=== PATIENT | male | born 1955 | race American Indian/Alaskan Native ===

== ENCOUNTER 2020-09-19 18:50 | Observation (INO) | payer MEDICARE, OTHER ==
[2020-09-19] MEDS ORDERED: IPRATROPIUM 0.02% NEBU 2.5 ML IH ONE (19:32)
[2020-09-19] MEDS ORDERED: ALBUTEROL 2.5 MG/3 ML NEBU IH ONE (19:32)
--- NOTE | 2020-09-19 19:32 | Emergency Department Report ---
ED Shortness of Breath HPI - General Stated Complaint: JASMYNE Time Seen by Provider: 09/19/20 19:23 Source: patient Mode of arrival: Stretcher Limitations: No Limitations - History of Present Illness Initial Comments: Chief complaint: "I could not breathe." HPI: This 65-year-old male with history of tobacco dependence, peripheral vascular disease, hypertension, alcohol dependence who presents with shortness of breath. Patient was recently discharged from the emergency department at [facility] 4 days ago on September 15. He was diagnosed with pneumonia and bronchitis. No known history of COPD. Patient had extensive work-up according to discharge documentation. Work-up included CBC BMP rapid COVID-19 PCR test, D-dimer, troponin, CT angio chest PE protocol. Patient is not vaccinated for COVID-19. Patient was prescribed azithromycin cefuroxime albuterol. Today patient contacted EMS for severe shortness of breath. Verbal EMS report stated that patient was in severe respiratory distress. Oxygen saturation 85% on room air. Medication provided per EMS include epinephrine 0.3 mg IM, IV Solu-Medrol, IV magnesium, albuterol 7.5 mg. Patient symptoms have improved. Patient denies fever, chest pain. He does have productive cough. He denies loss of taste or smell. Denies diarrhea. Electronic medical record reviewed. Complaint: shortness of breath -: Gradual, days(s) (4 days) Severity: severe Consistency: constant Improves With: nothing Worsens With: nothing Known History Of: other (Tobacco dependence recent diagnosis of pneumonia bronchitis at outside hospital) Associated Symptoms: cough, sputum production - Related Data Home Medications Medication Instructions Recorded Confirmed Last Taken Unobtainable 03/15/17 03/15/17 Unknown Allergies Allergy/AdvReac Type Severity Reaction Status Date / Time No Known Allergies Allergy Unverified 03/21/17 06:41 ED Review of Systems ROS: Stated complaint: JASMYNE Other details as noted in HPI Comment: All other systems reviewed and negative Constitutional: denies: fever, malaise ENT: denies: throat pain Respiratory: cough, shortness of breath, wheezing Cardiovascular: denies: chest pain Gastrointestinal: denies: abdominal pain, nausea, vomiting, diarrhea Neurological: denies: headache ED Past Medical Hx - Past Medical History Previous Medical History?: Yes Hx Hypertension: Yes Hx Diabetes: Yes - Surgical History Past Surgical History?: Yes Additional Surgical History: ORIF left lower extremity, vascular procedure right lower extremity, neck surgery status post trauma - Family History Family history: hypertension - Social History Smoking Status: Current Every Day Smoker Substance Use Type: Alcohol - Medications Home Medications: Home Medications Medication Instructions Recorded Confirmed Last Taken Type Unobtainable 03/15/17 03/15/17 Unknown History ED Physical Exam - General General appearance: alert, other (Speaking full word sentences with mild work of breathing) - Head Head exam: Present: atraumatic, normocephalic - Eye Eye exam: Present: normal appearance - ENT ENT exam: Present: mucous membranes moist - Neck Neck exam: Present: normal inspection, full ROM - Respiratory Respiratory exam: Present: respiratory distress, wheezes, decreased breath sounds, prolonged expiratory. Absent: rales, rhonchi, stridor - Cardiovascular Cardiovascular Exam: Present: regular rate, normal rhythm, normal heart sounds. Absent: systolic murmur, diastolic murmur, rubs, gallop - GI/Abdominal GI/Abdominal exam: Present: soft, normal bowel sounds. Absent: distended, tenderness, guarding, rebound - Rectal Rectal exam: Present: deferred - Extremities Exam Extremities exam: Present: normal inspection - Neurological Exam Neurological exam: Present: alert, oriented X3 - Psychiatric Psychiatric exam: Present: normal affect, normal mood - Skin Skin exam: Present: warm, dry, intact, normal color. Absent: rash ED Course Vital Signs 09/19/20 09/19/20 09/19/20 19:24 19:33 19:46 Temperature 98.2 F Pulse Rate 94 H Pulse Rate [ Bilateral] Respiratory 19 Rate Respiratory Rate [Bilateral ] Blood Pressure O2 Sat by Pulse 100 100 Oximetry 09/19/20 09/19/20 09/19/20 19:47 20:00 20:16 Temperature Pulse Rate 89 84 Pulse Rate [ 90 Bilateral] Respiratory 15 14 Rate Respiratory 18 Rate [Bilateral ] Blood Pressure 139/82 139/82 O2 Sat by Pulse 100 100 Oximetry 09/19/20 09/19/20 09/19/20 20:30 20:46 21:00 Temperature Pulse Rate 85 85 82 Pulse Rate [ Bilateral] Respiratory 18 17 19 Rate Respiratory Rate [Bilateral ] Blood Pressure 130/84 130/84 140/83 O2 Sat by Pulse 100 100 100 Oximetry ED Medical Decision Making - Lab Data Result diagrams: 09/19/20 19:27 09/19/20 20:19 Laboratory Results - last 24 hr 09/19/20 09/19/20 09/19/20 19:27 19:27 19:27 WBC 14.3 H RBC 4.63 Hgb 14.4 Hct 43.9 MCV 95 H MCH 31 MCHC 33 RDW 13.8 Plt Count 256 Eos % (Auto) Qc Scientist D-Dimer Sodium 138 Potassium 3.9 Chloride 103.7 Carbon Dioxide 23 Anion Gap 15 BUN 4 L Creatinine 0.7 L Estimated GFR > 60 BUN/Creatinine Ratio 6 Glucose 136 H Calcium 8.7 Ferritin Lactate Dehydrogenase C-Reactive Protein NT-Pro-B Natriuret Pep 163.5 09/19/20 09/19/20 09/19/20 20:19 20:19 20:19 WBC RBC Hgb Hct MCV MCH MCHC RDW Plt Count Eos % (Auto) D-Dimer 232.81 Sodium Potassium Chloride Carbon Dioxide Anion Gap BUN Creatinine Estimated GFR BUN/Creatinine Ratio Glucose 109 H Calcium Ferritin 114.6 Lactate Dehydrogenase 284 H C-Reactive Protein 0.70 NT-Pro-B Natriuret Pep - Radiology Data Radiology results: report reviewed [facility] [address] [place] [address] XRay Report Signed Patient: JAZLYN TORRES MR#: [id number] : 1955 Acct:[id number] Age/Sex: 65 / M ADM Date: 09/19/20 Loc: ED Attending Dr: Ordering Physician: Sherita El MD Date of Service: 09/19/20 Procedure(s): XR chest 1V ap Accession Number(s): [id number] cc: Sherita El MD Fluoro Time In Minutes: CHEST 1 VIEW INDICATION: dyspnea. COMPARISON: 09/17/2019 FINDINGS: Support devices: The patient has been extubated. Heart: Normal. Lungs/Pleura: Right infrahilar airspace disease persists. There is mild left basilar airspace disease. No pleural abnormality. IMPRESSION: 1. Mild bibasilar airspace disease greater on the right. These findings are similar to the prior. Signer Name: Jae Mcfadden MD Signed: 09/19/2020 7:55 PM Workstation Name: [id number] Transcribed By: BLAYNE Dictated By: Jae Mcfadden MD Electronically Authenticated By: Jae Mcfadden MD Signed Date/Time: 09/19/201954 DD/ 53 TD/TT: - Medical Decision Making Acute respiratory failure hypoxia due to multifocal pneumonia. Clear patient's recent COVID-[address] [facility] was negative or positive. Patient unable to give this information. Covid precautions instituted. Covid markers not elevated. Patient does have leukocytosis. He also is at risk for bacterial infection considering tobacco dependence. Patient treated with ceftriaxone and azithromycin. Considering long-term tobacco use, COPD is also a consideration. Patient is admitted in fair condition to the hospital service. CBC notable for leukocytosis. Critical care attestation.: If time is entered above; I have spent that time in minutes in the direct care of this critically ill patient, excluding procedure time. ED Disposition Clinical Impression: Acute respiratory failure with hypoxia, Community acquired pneumonia, Suspected COVID-19 virus infection Disposition: OP ADMIT IP TO THIS HOSP Is pt being admited?: Yes Does the pt Need Aspirin: No Condition: Stable Instructions: Bacterial Pneumonia (ED)
[2020-09-19 19:58] LABS: Blood Urea Nitrogen 4 mg/dL (9-20); Calcium 8.7 mg/dL (8.4-10.2); Hemolysis Index 2
--- NOTE | 2020-09-19 19:59 | XRay Report ---
CHEST 1 VIEW INDICATION: dyspnea. COMPARISON: 09/17/2019 FINDINGS: Support devices: The patient has been extubated. Heart: Normal. Lungs/Pleura: Right infrahilar airspace disease persists. There is mild left basilar airspace disease . No pleural abnormality. IMPRESSION: 1. Mild bibasilar airspace disease greater on the right. These findings are similar to the prior. Signer Name: Jae Mcfadden MD Signed: 09/19/2020 7:55 PM Workstation Name: [id number]
[2020-09-19] MEDS ORDERED: cefTRIAXone/NS 1 GM/50 ML 1 GM/50 ML BAG IV ONE (20:02)
[2020-09-19] MEDS ORDERED: AZITHROMYCIN/NS 500 MG/250 ML 500 MG/250 ML BAG IV ONE (20:02)
[2020-09-19 20:12] LABS: BUN/Creatinine Ratio 6
[2020-09-19 20:15] LABS: Hematocrit 43.9 % (35.5-45.6); Hemoglobin 14.4 gm/dl (11.8-15.2); Mean Corpuscular HGB Conc 33 % (32-34); Mean Corpuscular Volume 95 fl (84-94); Platelet Count 256 K/mm3 (140-440); Red Blood Count 4.63 M/mm3 (3.65-5.03); Red Cell Distribution Width 13.8 % (13.2-15.2)
[2020-09-19 21:05] LABS: C-Reactive Protein 0.7 mg/dL (0.00-1.30)
[2020-09-19 22:24] LABS: RBC Morphology Normal; Total Cells Counted 100
--- NOTE | 2020-09-19 23:12 | History and Physical Report ---
History of Present Illness Date of examination: 09/19/20 Date of admission: 09/19/20 22:30 Chief complaint: Cough Shortness of breath History of present illness: This is a 65-year-old male who presented to ED with chief complaint of shortness of breath and cough. Patient was recently discharge from [facility] days ago and he was diagnosed with pneumonia and bronchitis. Patient has history of tobacco use peripheral vascular disease hypertension and alcohol dependency. Patient denies the use of illicit drugs. On assessment, patient has cough and shortness of breath. Chest x-ray shows mild basilar airspace disease greater on the right. Patient is on room me and not in acute distress. Hospital medicine is consulted to admit the patient. Past History Past Medical History: hypertension Past Surgical History: Other (Left leg surgery) Social history: no significant social history, smoking (Quit about 12 years ago) Medications and Allergies Allergies Allergy/AdvReac Type Severity Reaction Status Date / Time No Known Allergies Allergy Unverified 03/21/17 06:41 Home Medications Medication Instructions Recorded Confirmed Last Taken Type Unobtainable 03/15/17 03/15/17 Unknown History Review of Systems Constitutional: weakness Ears, nose, mouth and throat: no epistaxis, no bleeding gums Cardiovascular: high blood pressure Respiratory: cough, shortness of breath Gastrointestinal: no BRBPR, no melena Rectal: no itching, no hemorrhoids Musculoskeletal: muscle weakness Integumentary: no pruritis, no redness Psychiatric: no suicidal ideation, no disorientation, no hallucinations Hematologic/Lymphatic: no easy bruising, no easy bleeding Allergic/Immunologic: no urticaria Exam - Constitutional Vitals: Temp Pulse Resp BP Pulse Ox 98.2 F 82 19 140/83 100 09/19/20 19:24 09/19/20 21:00 09/19/20 21:00 09/19/20 21:00 09/19/20 21:00 General appearance: Present: mild distress, well-nourished - EENT Eyes: Present: PERRL ENT: hearing intact, clear oral mucosa - Neck Neck: Present: supple, normal ROM - Respiratory Respiratory effort: other (Shortness of breath) Respiratory: bilateral: CTA - Cardiovascular Heart rate: 82 Heart Sounds: Present: S1 & S2. Absent: rub, click - Extremities Extremities: pulses symmetrical, No edema Peripheral Pulses: within normal limits - Abdominal General gastrointestinal: Present: soft, non-tender, non-distended, normal bowel sounds Male genitourinary: Present: normal - Integumentary Integumentary: Present: clear, warm, dry - Musculoskeletal Musculoskeletal: gait normal, strength equal bilaterally - Psychiatric Psychiatric: appropriate mood/affect, intact judgment & insight, cooperative - Neurologic Neurologic: CNII-XII intact, moves all extremities - Allied Health Allied health notes reviewed: nursing Results - Labs CBC & Chem 7: 09/20/20 05:01 09/19/20 20:19 Labs: Abnormal lab results 09/19/20 09/19/20 09/19/20 Range/Units 19:27 19:27 20:19 WBC 14.3 H (4.5-11.0) K/mm3 MCV 95 H (84-94) fl Lymphocytes % (Manual) 13.0 L (13.4-35.0) % Eosinophils % (Manual) 38.0 H (0.0-4.3) % Monocytes # (Manual) 0.9 H (0.0-0.8) K/mm3 Eosinophils # (Manual) 5.4 H (0.0-0.4) K/mm3 BUN 4 L (9-20) mg/dL Creatinine 0.7 L (0.8-1.3) mg/dL Glucose 136 H 109 H (75-100) mg/dL Lactate Dehydrogenase 284 H (91-180) units/L Assessment and Plan - Patient Problems (1) Suspected COVID-19 virus infection Current Visit: Yes Status: Acute Plan to address problem: Continue contact airborne isolation Empiric antibiotic and oxygen supplement if needed Ascorbic acid, zinc sulfate, and vitamin D supplement Encourage ambulation and use of incentive spirometer Monitor inflammatory markers. ID consulted. (2) Community acquired pneumonia Current Visit: Yes Status: Acute Plan to address problem: Continue empiric antibiotic Bronchodilator. Oxygen supplement if needed (3) Leukocytosis (leucocytosis) Current Visit: Yes Status: Acute Plan to address problem: Likely secondary to pneumonia Monitor WBC and lactic acid level Blood culture follow-up with results ID consult (4) Acute respiratory failure Current Visit: Yes Status: Acute Plan to address problem: Respiratory careABG Systemic steroid and bronchodilator Antibiotic empiric Consult ID (5) DVT prophylaxis Current Visit: Yes Status: Acute Plan to address problem: Subcutaneous Lovenox
[2020-09-19] MEDS ORDERED: HYDROcodone/ACETAMINOPHEN 5-325 MG TAB PO PRN (23:22)
[2020-09-19] MEDS ORDERED: ACETAMINOPHEN 325 MG TAB PO PRN (23:22)
[2020-09-19] MEDS ORDERED: MAGNESIUM HYDROXIDE (MOM) ORAL LIQD UDC PO PRN (23:22)
[2020-09-19] MEDS ORDERED: NALOXONE 0.4 MG/1 ML INJ IV PRN (23:22)
[2020-09-19] MEDS ORDERED: IBUPROFEN 600 MG TAB PO PRN (23:22)
[2020-09-19] MEDS ORDERED: ONDANSETRON 4 MG/2 ML INJ IV PRN (23:22)
[2020-09-19] MEDS ORDERED: ALUM-MAG HYDROXIDE-SIMETHICONE 200-200-20MG/5ML ORAL LIQD 30 ML PO PRN (23:22)
[2020-09-19] MEDS ORDERED: SENNOSIDES 8.6 MG TAB PO PRN (23:22)
[2020-09-19] MEDS ORDERED: METOCLOPRAMIDE 10 MG/2 ML INJ IV PRN (23:22)
[2020-09-19] MEDS ORDERED: ALBUTEROL 2.5 MG/3 ML NEBU IH PRN (23:22)
[2020-09-20] MEDS: IPRATROPIUM/ALBUTEROL SULFATE 3 ML AMPUL.NEB IH SCH ×4 (03:38→19:49)
[2020-09-20 05:35] LABS: Basophils % (Auto) 0.5 % (0.0-1.8); Eosinophils % (Auto) 0.5 % (0.0-4.3); Hemoglobin 14.6 gm/dl (11.8-15.2); Lymphocytes # (Auto) 1.7 K/mm3 (1.2-5.4); Lymphocytes % (Auto) 18.8 % (13.4-35.0); Mean Corpuscular HGB Conc 33 % (32-34); Mean Corpuscular Volume 94 fl (84-94); Monocytes # (Auto) 0.2 K/mm3 (0.0-0.8); Monocytes % (Auto) 1.9 % (0.0-7.3); Platelet Count 264 K/mm3 (140-440); Red Cell Distribution Width 13.8 % (13.2-15.2)
[2020-09-20 06:06] LABS: Alanine Aminotransferase 26 units/L (7-56); Blood Urea Nitrogen 7 mg/dL (9-20); C-Reactive Protein 0.7 mg/dL (0.00-1.30); Calcium 9.4 mg/dL (8.4-10.2); Hemolysis Index 0
[2020-09-20 06:07] LABS: BUN/Creatinine Ratio 10
[2020-09-20] MEDS: dexAMETHasone 4 MG/ML VIAL IV SCH (10:13)
[2020-09-20] MEDS: ZINC SULFATE 220 MG CAP PO SCH (10:13)
[2020-09-20] MEDS: ENOXAPARIN 40 MG/0.4 ML INJ SUB-Q SCH (10:13)
[2020-09-20] MEDS: FAMOTIDINE 20 MG/2 ML INJ IV SCH (10:13)
--- NOTE | 2020-09-20 11:19 | Consultation ---
History of Present Illness - Reason for Consult Consult date: 09/20/20 PUI Requesting physician: SAVANNAH MCDONALD - History of Present Illness The patient is a 65-year-old male with tobacco use, peripheral vascular disease, alcohol dependence, hypertension admitted with shortness of breath. Recent evaluation in the emergency room at [facility] diagnosed with pneumonia and bronchitis, discharged on p.o. antibiotics. Unvaccinated for COVID-19. Labs with mild leukocytosis. COVID-19 PCR is pending. Chest x-ray with mild bibasilar airspace disease Review of Systems: reviewed in the chart, unable to obtain, minimize risk of transmission Past History Past Medical History: hypertension Past Surgical History: Other (Left leg surgery) Social history: no significant social history, smoking (Quit about 12 years ago) Medications and Allergies Allergies Allergy/AdvReac Type Severity Reaction Status Date / Time No Known Allergies Allergy Unverified 03/21/17 06:41 Home Medications Medication Instructions Recorded Confirmed Last Taken Type Unobtainable 03/15/17 09/20/20 Unknown History Active Meds: Active Medications Acetaminophen (Acetaminophen 325 Mg Tab) 650 mg PO Q4H PRN PRN Reason: Pain MILD(1-3)/Fever >100.5/GANDARA Hydrocodone Bitart/Acetaminophen (Hydrocodone/Acetaminophen 5-325 Mg Tab) 2 each PO Q6H PRN PRN Reason: Pain, Moderate (4-6) Al Hydrox/Mg Hydrox/Simethicone (Alum-Mag Hydroxide-Simethicone 682-024-81in/5ml Oral Liqd 30 Ml) 30 ml PO Q4H PRN PRN Reason: Indigestion Albuterol (Albuterol 2.5 Mg/3 Ml Nebu) 2.5 mg IH Q4HRT PRN PRN Reason: Shortness Of Breath Albuterol/Ipratropium (Ipratropium/Albuterol Sulfate 3 Ml Ampul.Neb) 1 ampul IH Q6HRT [facility] Last Admin: 09/20/20 07:46 Dose: 1 ampul Documented by: Ascorbic Acid (Ascorbic Acid 500 Mg Tab) 500 mg PO QDAY [facility] Cholecalciferol (Cholecalciferol (Vit D3) 1000 Unit (25 Mcg) Tab) 1,000 unit PO QDAY [facility] Dexamethasone (Dexamethasone 4 Mg/Ml Vial) 6 mg IV DAILY [facility] Last Admin: 09/20/20 10:13 Dose: 6 mg Documented by: Enoxaparin Sodium (Enoxaparin 40 Mg/0.4 Ml Inj) 40 mg SUB-Q QDAY [facility] Last Admin: 09/20/20 10:13 Dose: 40 mg Documented by: Famotidine (Famotidine 20 Mg/2 Ml Inj) 20 mg IV BID [facility] Last Admin: 09/20/20 10:13 Dose: 20 mg Documented by: Ceftriaxone Sodium (Rocephin/Ns 1 Gm/50 Ml) 1 gm in 50 mls @ 100 mls/hr IV Q24H [facility]; Protocol Ibuprofen (Ibuprofen 600 Mg Tab) 600 mg PO Q6H PRN PRN Reason: Pain, Mild (1-3) Magnesium Hydroxide (Magnesium Hydroxide (Mom) Oral Liqd Udc) 30 ml PO Q4H PRN PRN Reason: Constipation Metoclopramide HCl (Metoclopramide 10 Mg/2 Ml Inj) 10 mg IV Q6H PRN PRN Reason: Nausea And Vomiting Naloxone HCl (Naloxone 0.4 Mg/1 Ml Inj) 0.1 mg IV Q2MIN PRN PRN Reason: Res Rate </= 8 or 02 SAT < 92% Ondansetron HCl (Ondansetron 4 Mg/2 Ml Inj) 4 mg IV Q8H PRN PRN Reason: Nausea And Vomiting Senna (Sennosides 8.6 Mg Tab) 8.6 mg PO Q12HR PRN PRN Reason: Constipation Sodium Chloride (Sodium Chloride 0.9% 10 Ml Flush Syringe) 10 ml IV PRN PRN PRN Reason: LINE FLUSH Zinc Sulfate (Zinc Sulfate 220 Mg Cap) 220 mg PO QDAY [facility] Last Admin: 09/20/20 10:13 Dose: 220 mg Documented by: Physical Examination - Physical Exam Narrative exam: Physical Exam (reviewed in chart to minimize risk of transmission) Constitutional: deferred Head, Ears, Nose: deferred Eyes: deferred Neck: deferred Oral: deferred Cardiovascular: deferred Respiratory: deferred GI: deferred Musculoskeletal: deferred Skin: deferred Hem/Lymphatic: deferred Psych: deferred Neurological: deferred - Constitutional Vitals: Vital Signs Temp Pulse Resp BP Pulse Ox 98.2 F 61 20 144/95 95 09/19/20 19:24 09/20/20 07:58 09/20/20 07:58 09/20/20 07:30 09/20/20 09:24 Temperature -Last 24 Hours Temperature 98.2 F Results - Labs CBC & Chem 7: 09/20/20 05:01 09/20/20 05:01 Labs: Abnormal lab results 09/19/20 09/19/20 09/19/20 Range/Units 19:27 19:27 20:19 WBC 14.3 H (4.5-11.0) K/mm3 MCV 95 H (84-94) fl Seg Neutrophils % (40.0-70.0) % Lymphocytes % (Manual) 13.0 L (13.4-35.0) % Eosinophils % (Manual) 38.0 H (0.0-4.3) % Monocytes # (Manual) 0.9 H (0.0-0.8) K/mm3 Eosinophils # (Manual) 5.4 H (0.0-0.4) K/mm3 BUN 4 L (9-20) mg/dL Creatinine 0.7 L (0.8-1.3) mg/dL Glucose 136 H 109 H (75-100) mg/dL Alkaline Phosphatase (35-129) units/L Lactate Dehydrogenase 284 H (91-180) units/L 09/20/20 09/20/20 Range/Units 05:01 05:01 WBC (4.5-11.0) K/mm3 MCV (84-94) fl Seg Neutrophils % 78.3 H (40.0-70.0) % Lymphocytes % (Manual) (13.4-35.0) % Eosinophils % (Manual) (0.0-4.3) % Monocytes # (Manual) (0.0-0.8) K/mm3 Eosinophils # (Manual) (0.0-0.4) K/mm3 BUN 7 L (9-20) mg/dL Creatinine 0.7 L (0.8-1.3) mg/dL Glucose 159 H (75-100) mg/dL Alkaline Phosphatase 132 H (35-129) units/L Lactate Dehydrogenase (91-180) units/L - Imaging and Cardiology Chest x-ray: report reviewed, image reviewed (minimal bibasilar disease) Assessment and Plan Cultures: SARS CoV2 PCR: Pending 09/19/2020 blood culture: In process A/P: 65-year-old male with tobacco use, peripheral vascular disease, alcohol dependence, hypertension admitted with shortness of breath. Recent evaluation in the emergency room at [facility] diagnosed with pneumonia and bronchitis, discharged on p.o. antibiotics. Unvaccinated for COVID-19: #Bilateral pneumonia versus bronchitis. CRP is low. Procalcitonin pending. COVID-19 PCR is pending. ? COPD #COVID-19 PUI #Tobacco and alcohol abuse Recs: Follow-up COVID-19 PCR Continue empiric antibiotics, discontinue if procalcitonin is low Steroids per primary team for possible COPD/bronchitis Xavi Simms MD, FACP [facility] O: [phone] F: [phone]
[2020-09-20] MEDS: CHOLECALCIFEROL (VIT D3) 1000 UNIT (25 mcg) TAB PO SCH (11:58)
[2020-09-20] MEDS: ASCORBIC ACID 500 MG TAB PO SCH (11:58)
--- NOTE | 2020-09-20 12:09 | Progress Note ---
Assessment and Plan - Patient Problems (1) Acute respiratory failure Current Visit: Yes Status: Acute Qualifiers: Respiratory failure complication: hypoxia Qualified Code(s): J96.01 - Acute respiratory failure with hypoxia Plan to address problem: Supplemental oxygen, pulse oximetry, nebulizer therapy, prone positioning while in bed, (2) Community acquired pneumonia Current Visit: Yes Status: Acute Plan to address problem: Pneumonia protocol: IV antibiotic therapy, supplemental oxygen, pulse oximetry, nebulizer therapy, (3) Suspected COVID-19 virus infection Current Visit: Yes Status: Acute Plan to address problem: Coronavirus protocol: IV antibiotic therapy, IV steroid therapy, vitamin C the rapy, vitamin D therapy, zinc therapy, pulse oximetry, prophylactic anticoagulation. (4) DVT prophylaxis Current Visit: Yes Status: Acute Plan to address problem: SCD to bilateral lower extremities while in bed, prophylactic anticoagulation (5) Advance care planning Current Visit: Yes Status: Acute Plan to address problem: Disease education conducted, care plan discussed, diagnosis discussed, prognosis discussed, patient is full code, patient acknowledges understanding and agreement with care plan. +30 minutes. History Interval history: 65 YO Male with HTN, pneumonia suspected secondary to coronavirus infection, acute hypoxemic respiratory failure. Patient denies pain. No reported nursing events. Patient knowledges persistent shortness of breath. As well as intermittent coughing. Hospitalist Physical - Constitutional Vitals: Temp Pulse Resp BP Pulse Ox 98.2 F 64 21 142/86 97 09/19/20 19:24 09/20/20 08:30 09/20/20 11:00 09/20/20 11:00 09/20/20 11:00 General appearance: Present: mild distress, well-nourished - EENT Eyes: Present: PERRL, EOM intact ENT: hearing intact - Neck Neck: Present: supple - Respiratory Respiratory effort: labored, accessory muscle use Respiratory: bilateral: diminished - Cardiovascular Rhythm: regular Heart Sounds: Present: S1 & S2 - Extremities Extremities: no ischemia Peripheral Pulses: within normal limits - Abdominal General gastrointestinal: soft, non-tender, non-distended - Integumentary Integumentary: Present: clear, dry - Psychiatric Psychiatric: cooperative - Neurologic Neurologic: CNII-XII intact Results - Labs CBC & Chem 7: 09/20/20 05:01 09/20/20 05:01 Labs: Laboratory Last Values WBC 9.3 K/mm3 (4.5-11.0) 09/20/20 05:01 RBC 4.70 M/mm3 (3.65-5.03) 09/20/20 05:01 Hgb 14.6 gm/dl (11.8-15.2) 09/20/20 05:01 Hct 44.0 % (35.5-45.6) 09/20/20 05:01 MCV 94 fl (84-94) 09/20/20 05:01 MCH 31 pg (28-32) 09/20/20 05:01 MCHC 33 % (32-34) 09/20/20 05:01 RDW 13.8 % (13.2-15.2) 09/20/20 05:01 Plt Count 264 K/mm3 (140-440) 09/20/20 05:01 Lymph % (Auto) 18.8 % (13.4-35.0) 09/20/20 05:01 [place] % (Auto) 1.9 % (0.0-7.3) 09/20/20 05:01 Eos % (Auto) 0.5 % (0.0-4.3) 09/20/20 05:01 Baso % (Auto) 0.5 % (0.0-1.8) 09/20/20 05:01 Lymph # (Auto) 1.7 K/mm3 (1.2-5.4) 09/20/20 05:01 [place] # (Auto) 0.2 K/mm3 (0.0-0.8) 09/20/20 05:01 Eos # (Auto) 0.0 K/mm3 (0.0-0.4) 09/20/20 05:01 Baso # (Auto) 0.0 K/mm3 (0.0-0.1) 09/20/20 05:01 Add Manual Diff Complete 09/19/20 19:27 Total Counted 100 09/19/20 19:27 Seg Neutrophils % 78.3 % (40.0-70.0) H 09/20/20 05:01 Seg Neuts % (Manual) 42.0 % (40.0-70.0) 09/19/20 19:27 Lymphocytes % (Manual) 13.0 % (13.4-35.0) L 09/19/20 19:27 Monocytes % (Manual) 6.0 % (0.0-7.3) 09/19/20 19:27 Eosinophils % (Manual) 38.0 % (0.0-4.3) H 09/19/20 19:27 Basophils % (Manual) 1.0 % (0.0-1.8) 09/19/20 19:27 Nucleated RBC % Not Reportable 09/19/20 19:27 Seg Neutrophils # 7.3 K/mm3 (1.8-7.7) 09/20/20 05:01 Seg Neutrophils # Man 6.0 K/mm3 (1.8-7.7) 09/19/20 19:27 Band Neutrophils # 0.0 K/mm3 09/19/20 19:27 Lymphocytes # (Manual) 1.9 K/mm3 (1.2-5.4) 09/19/20 19:27 Abs React Lymphs (Man) 0.0 K/mm3 09/19/20 19:27 Monocytes # (Manual) 0.9 K/mm3 (0.0-0.8) H 09/19/20 19:27 Eosinophils # (Manual) 5.4 K/mm3 (0.0-0.4) H 09/19/20 19:27 Basophils # (Manual) 0.1 K/mm3 (0.0-0.1) 09/19/20 19:27 Metamyelocytes # 0.0 K/mm3 09/19/20 19:27 Myelocytes # 0.0 K/mm3 09/19/20 19:27 Promyelocytes # 0.0 K/mm3 09/19/20 19:27 Blast Cells # 0.0 K/mm3 09/19/20 19:27 WBC Morphology Not Reportable 09/19/20 19:27 Hypersegmented Neuts Not Reportable 09/19/20 19:27 Hyposegmented Neuts Not Reportable 09/19/20 19:27 Hypogranular Neuts Not Reportable 09/19/20 19:27 Smudge Cells Not Reportable 09/19/20 19:27 Toxic Granulation Not Reportable 09/19/20 19:27 Toxic Vacuolation Not Reportable 09/19/20 19:27 Dohle Bodies Not Reportable 09/19/20 19:27 Pelger-Huet Anomaly Not Reportable 09/19/20 19:27 Prosper Rods Not Reportable 09/19/20 19:27 Platelet Estimate Not Reportable 09/19/20 19:27 Clumped Platelets Not Reportable 09/19/20 19:27 Plt Clumps, EDTA Not Reportable 09/19/20 19:27 Large Platelets Not Reportable 09/19/20 19:27 Giant Platelets Not Reportable 09/19/20 19:27 Platelet Satelliting Not Reportable 09/19/20 19:27 Plt Morphology Comment Not Reportable 09/19/20 19:27 RBC Morphology Normal 09/19/20 19:27 Dimorphic RBCs Not Reportable 09/19/20 19:27 Polychromasia Not Reportable 09/19/20 19:27 Hypochromasia Not Reportable 09/19/20 19:27 Poikilocytosis Not Reportable 09/19/20 19:27 Anisocytosis Not Reportable 09/19/20 19:27 Microcytosis Not Reportable 09/19/20 19:27 Macrocytosis Not Reportable 09/19/20 19:27 Spherocytes Not Reportable 09/19/20 19:27 Pappenheimer Bodies Not Reportable 09/19/20 19:27 Sickle Cells Not Reportable 09/19/20 19:27 Target Cells Not Reportable 09/19/20 19:27 Tear Drop Cells Not Reportable 09/19/20 19:27 Ovalocytes Not Reportable 09/19/20 19:27 Helmet Cells Not Reportable 09/19/20 19:27 [place] Bodies Not Reportable 09/19/20 19:27 [place] Rings Not Reportable 09/19/20 19:27 Van Cells Not Reportable 09/19/20 19:27 Bite Cells Not Reportable 09/19/20 19:27 Crenated Cell Not Reportable 09/19/20 19:27 Elliptocytes Not Reportable 09/19/20 19:27 Acanthocytes (Spur) Not Reportable 09/19/20 19:27 Rouleaux Not Reportable 09/19/20 19:27 Hemoglobin C Crystals Not Reportable 09/19/20 19:27 Schistocytes Not Reportable 09/19/20 19:27 Malaria parasites Not Reportable 09/19/20 19:27 Dequan Bodies Not Reportable 09/19/20 19:27 Hem Pathologist Commnt No 09/19/20 19:27 D-Dimer 137.15 ng/mlDDU (0-234) 09/20/20 05:01 Sodium 138 mmol/L (137-145) 09/20/20 05:01 Potassium 4.3 mmol/L (3.6-5.0) 09/20/20 05:01 Chloride 101.8 mmol/L (98-107) 09/20/20 05:01 Carbon Dioxide 27 mmol/L (22-30) 09/20/20 05:01 Anion Gap 14 mmol/L 09/20/20 05:01 BUN 7 mg/dL (9-20) L 09/20/20 05:01 Creatinine 0.7 mg/dL (0.8-1.3) L 09/20/20 05:01 Estimated GFR > 60 ml/min 09/20/20 05:01 BUN/Creatinine Ratio 10 % 09/20/20 05:01 Glucose 159 mg/dL (75-100) H 09/20/20 05:01 Hemoglobin A1c 6.0 % (4-6) 09/19/20 19:27 Calcium 9.4 mg/dL (8.4-10.2) 09/20/20 05:01 Ferritin 98.3 ng/mL (30.0-300.0) 09/20/20 05:01 Total Bilirubin 0.50 mg/dL (0.1-1.2) 09/20/20 05:01 AST 18 units/L (5-40) 09/20/20 05:01 ALT 26 units/L (7-56) 09/20/20 05:01 Alkaline Phosphatase 132 units/L (35-129) H 09/20/20 05:01 Lactate Dehydrogenase 148 units/L (91-180) 09/20/20 05:01 C-Reactive Protein 0.70 mg/dL (0.00-1.30) 09/20/20 05:01 NT-Pro-B Natriuret Pep 163.5 pg/mL (0-900) 09/19/20 19:27 Total Protein 7.9 g/dL (6.3-8.2) 09/20/20 05:01 Albumin 4.0 g/dL (3.9-5) 09/20/20 05:01 Albumin/Globulin Ratio 1.0 % 09/20/20 05:01 Microbiology: Microbiology 09/19/20 19:27 Peripheral/Venous Blood Culture - Preliminary Culture in Progress 09/19/20 19:27 Peripheral/Venous Blood Culture - Preliminary Culture in Progress Active Medications - Current Medications Current Medications: Generic Name Dose Route Start Last Admin Trade Name Freq PRN Reason Stop Dose Admin Acetaminophen 650 mg 09/19/20 23:22 Acetaminophen 325 Mg Tab PO Q4H PRN Pain MILD(1-3)/Fever >100.5/GANDARA Hydrocodone Bitart/Acetaminophen 2 each 09/19/20 23:22 Hydrocodone/Acetaminophen 5-325 Mg Tab PO Q6H PRN Pain, Moderate (4-6) Al Hydrox/Mg Hydrox/Simethicone 30 ml 09/19/20 23:22 Alum-Mag Hydroxide-Simethicone [phone]/5ml Oral Liqd 30 Ml PO Q4H PRN Indigestion Albuterol 2.5 mg 09/19/20 23:22 Albuterol 2.5 Mg/3 Ml Nebu IH Q4HRT PRN Shortness Of Breath Albuterol/Ipratropium 1 ampul 09/20/20 02:00 09/20/20 07:46 Ipratropium/Albuterol Sulfate 3 Ml Ampul.Neb IH 1 ampul Q6HRT RADHA Administration Ascorbic Acid 500 mg 09/20/20 10:00 09/20/20 11:58 Ascorbic Acid 500 Mg Tab PO 500 mg QDAY RADHA Administration Cholecalciferol 1,000 unit 09/20/20 10:00 09/20/20 11:58 Cholecalciferol (Vit D3) 1000 Unit (25 Mcg) Tab PO 1,000 unit QDAY RADHA Administration Dexamethasone 6 mg 09/20/20 10:00 09/20/20 10:13 Dexamethasone 4 Mg/Ml Vial IV 6 mg DAILY RADHA Administration Enoxaparin Sodium 40 mg 09/20/20 10:00 09/20/20 10:13 Enoxaparin 40 Mg/0.4 Ml Inj SUB-Q 40 mg QDAY RADHA Administration Famotidine 20 mg 09/20/20 10:00 09/20/20 10:13 Famotidine 20 Mg/2 Ml Inj IV 20 mg BID RADHA Administration Ceftriaxone Sodium 1 gm in 50 mls @ 100 mls/hr 09/20/20 18:00 Rocephin/Ns 1 Gm/50 Ml IV Q24H RADHA Protocol Ibuprofen 600 mg 09/19/20 23:22 Ibuprofen 600 Mg Tab PO Q6H PRN Pain, Mild (1-3) Magnesium Hydroxide 30 ml 09/19/20 23:22 Magnesium Hydroxide (Mom) Oral Liqd Udc PO Q4H PRN Constipation Metoclopramide HCl 10 mg 09/19/20 23:22 Metoclopramide 10 Mg/2 Ml Inj IV Q6H PRN Nausea And Vomiting Naloxone HCl 0.1 mg 09/19/20 23:22 Naloxone 0.4 Mg/1 Ml Inj IV Q2MIN PRN Res Rate </= 8 or 02 SAT < 92% Ondansetron HCl 4 mg 09/19/20 23:22 Ondansetron 4 Mg/2 Ml Inj IV Q8H PRN Nausea And Vomiting Senna 8.6 mg 09/19/20 23:22 Sennosides 8.6 Mg Tab PO Q12HR PRN Constipation Sodium Chloride 10 ml 09/19/20 23:22 Sodium Chloride 0.9% 10 Ml Flush Syringe IV PRN PRN LINE FLUSH Zinc Sulfate 220 mg 09/20/20 10:00 09/20/20 10:13 Zinc Sulfate 220 Mg Cap PO 220 mg QDAY RADHA Administration
[2020-09-20] MEDS: cefTRIAXone/NS 1 GM/50 ML 1 GM/50 ML BAG IV SCH (18:18)
[2020-09-21] MEDS: IPRATROPIUM/ALBUTEROL SULFATE 3 ML AMPUL.NEB IH SCH ×3 (02:28→15:34)
[2020-09-21] MEDS: dexAMETHasone 4 MG/ML VIAL IV SCH (11:47)
[2020-09-21] MEDS: ZINC SULFATE 220 MG CAP PO SCH (11:47)
[2020-09-21] MEDS: FAMOTIDINE 20 MG/2 ML INJ IV SCH (11:48)
[2020-09-21] MEDS: ENOXAPARIN 40 MG/0.4 ML INJ SUB-Q SCH (11:48)
[2020-09-21] MEDS: CHOLECALCIFEROL (VIT D3) 1000 UNIT (25 mcg) TAB PO SCH (12:47)
[2020-09-21] MEDS: ASCORBIC ACID 500 MG TAB PO SCH (12:47)
--- NOTE | 2020-09-21 13:34 | Progress Note ---
Assessment and Plan - Patient Problems (1) Acute respiratory failure Current Visit: Yes Status: Acute Qualifiers: Respiratory failure complication: hypoxia Qualified Code(s): J96.01 - Acute respiratory failure with hypoxia Plan to address problem: Supplemental oxygen, pulse oximetry, nebulizer therapy, prone positioning while in bed, (2) Community acquired pneumonia Current Visit: Yes Status: Acute Plan to address problem: Pneumonia protocol: IV antibiotic therapy, supplemental oxygen, pulse oximetry, nebulizer therapy, (3) Suspected COVID-19 virus infection Current Visit: Yes Status: Acute Plan to address problem: Coronavirus protocol: IV antibiotic therapy, IV steroid therapy, vitamin C the rapy, vitamin D therapy, zinc therapy, pulse oximetry, prophylactic anticoagulation. (4) DVT prophylaxis Current Visit: Yes Status: Acute Plan to address problem: SCD to bilateral lower extremities while in bed, prophylactic anticoagulation (5) Advance care planning Current Visit: Yes Status: Acute Plan to address problem: Disease education conducted, care plan discussed, diagnosis discussed, prognosis discussed, patient is full code, patient acknowledges understanding and agreement with care plan. +30 minutes. History Interval history: 65 YO Male with HTN, pneumonia suspected secondary to coronavirus infection, acute hypoxemic respiratory failure. Patient denies pain. No reported nursing events. Patient knowledges persistent shortness of breath. As well as intermittent coughing. Hospitalist Physical - Constitutional Vitals: Temp Pulse Resp BP Pulse Ox 98.2 F 89 19 134/78 99 09/19/20 19:24 09/21/20 12:00 09/21/20 12:00 09/21/20 12:00 09/21/20 13:29 General appearance: Present: mild distress, well-nourished - EENT Eyes: Present: PERRL ENT: hearing intact - Neck Neck: Present: supple - Respiratory Respiratory effort: labored Respiratory: bilateral: diminished - Cardiovascular Rhythm: regular Heart Sounds: Present: S1 & S2 - Extremities Extremities: no ischemia Peripheral Pulses: within normal limits - Abdominal General gastrointestinal: soft, non-tender, non-distended - Integumentary Integumentary: Present: clear, dry - Psychiatric Psychiatric: cooperative - Neurologic Neurologic: CNII-XII intact Results - Labs CBC & Chem 7: 09/20/20 05:01 09/20/20 05:01 Labs: Laboratory Last Values WBC 9.3 K/mm3 (4.5-11.0) 09/20/20 05:01 RBC 4.70 M/mm3 (3.65-5.03) 09/20/20 05:01 Hgb 14.6 gm/dl (11.8-15.2) 09/20/20 05:01 Hct 44.0 % (35.5-45.6) 09/20/20 05:01 MCV 94 fl (84-94) 09/20/20 05:01 MCH 31 pg (28-32) 09/20/20 05:01 MCHC 33 % (32-34) 09/20/20 05:01 RDW 13.8 % (13.2-15.2) 09/20/20 05:01 Plt Count 264 K/mm3 (140-440) 09/20/20 05:01 Lymph % (Auto) 18.8 % (13.4-35.0) 09/20/20 05:01 [place] % (Auto) 1.9 % (0.0-7.3) 09/20/20 05:01 Eos % (Auto) 0.5 % (0.0-4.3) 09/20/20 05:01 Baso % (Auto) 0.5 % (0.0-1.8) 09/20/20 05:01 Lymph # (Auto) 1.7 K/mm3 (1.2-5.4) 09/20/20 05:01 [place] # (Auto) 0.2 K/mm3 (0.0-0.8) 09/20/20 05:01 Eos # (Auto) 0.0 K/mm3 (0.0-0.4) 09/20/20 05:01 Baso # (Auto) 0.0 K/mm3 (0.0-0.1) 09/20/20 05:01 Add Manual Diff Complete 09/19/20 19:27 Total Counted 100 09/19/20 19:27 Seg Neutrophils % 78.3 % (40.0-70.0) H 09/20/20 05:01 Seg Neuts % (Manual) 42.0 % (40.0-70.0) 09/19/20 19:27 Lymphocytes % (Manual) 13.0 % (13.4-35.0) L 09/19/20 19:27 Monocytes % (Manual) 6.0 % (0.0-7.3) 09/19/20 19:27 Eosinophils % (Manual) 38.0 % (0.0-4.3) H 09/19/20 19:27 Basophils % (Manual) 1.0 % (0.0-1.8) 09/19/20 19:27 Nucleated RBC % Not Reportable 09/19/20 19:27 Seg Neutrophils # 7.3 K/mm3 (1.8-7.7) 09/20/20 05:01 Seg Neutrophils # Man 6.0 K/mm3 (1.8-7.7) 09/19/20 19:27 Band Neutrophils # 0.0 K/mm3 09/19/20 19:27 Lymphocytes # (Manual) 1.9 K/mm3 (1.2-5.4) 09/19/20 19:27 Abs React Lymphs (Man) 0.0 K/mm3 09/19/20 19:27 Monocytes # (Manual) 0.9 K/mm3 (0.0-0.8) H 09/19/20 19:27 Eosinophils # (Manual) 5.4 K/mm3 (0.0-0.4) H 09/19/20 19:27 Basophils # (Manual) 0.1 K/mm3 (0.0-0.1) 09/19/20 19:27 Metamyelocytes # 0.0 K/mm3 09/19/20 19:27 Myelocytes # 0.0 K/mm3 09/19/20 19:27 Promyelocytes # 0.0 K/mm3 09/19/20 19:27 Blast Cells # 0.0 K/mm3 09/19/20 19:27 WBC Morphology Not Reportable 09/19/20 19:27 Hypersegmented Neuts Not Reportable 09/19/20 19:27 Hyposegmented Neuts Not Reportable 09/19/20 19:27 Hypogranular Neuts Not Reportable 09/19/20 19:27 Smudge Cells Not Reportable 09/19/20 19:27 Toxic Granulation Not Reportable 09/19/20 19:27 Toxic Vacuolation Not Reportable 09/19/20 19:27 Dohle Bodies Not Reportable 09/19/20 19:27 Pelger-Huet Anomaly Not Reportable 09/19/20 19:27 Prosper Rods Not Reportable 09/19/20 19:27 Platelet Estimate Not Reportable 09/19/20 19:27 Clumped Platelets Not Reportable 09/19/20 19:27 Plt Clumps, EDTA Not Reportable 09/19/20 19:27 Large Platelets Not Reportable 09/19/20 19:27 Giant Platelets Not Reportable 09/19/20 19:27 Platelet Satelliting Not Reportable 09/19/20 19:27 Plt Morphology Comment Not Reportable 09/19/20 19:27 RBC Morphology Normal 09/19/20 19:27 Dimorphic RBCs Not Reportable 09/19/20 19:27 Polychromasia Not Reportable 09/19/20 19:27 Hypochromasia Not Reportable 09/19/20 19:27 Poikilocytosis Not Reportable 09/19/20 19:27 Anisocytosis Not Reportable 09/19/20 19:27 Microcytosis Not Reportable 09/19/20 19:27 Macrocytosis Not Reportable 09/19/20 19:27 Spherocytes Not Reportable 09/19/20 19:27 Pappenheimer Bodies Not Reportable 09/19/20 19:27 Sickle Cells Not Reportable 09/19/20 19:27 Target Cells Not Reportable 09/19/20 19:27 Tear Drop Cells Not Reportable 09/19/20 19:27 Ovalocytes Not Reportable 09/19/20 19:27 Helmet Cells Not Reportable 09/19/20 19:27 [place] Bodies Not Reportable 09/19/20 19:27 [place] Rings Not Reportable 09/19/20 19:27 Van Cells Not Reportable 09/19/20 19:27 Bite Cells Not Reportable 09/19/20 19:27 Crenated Cell Not Reportable 09/19/20 19:27 Elliptocytes Not Reportable 09/19/20 19:27 Acanthocytes (Spur) Not Reportable 09/19/20 19:27 Rouleaux Not Reportable 09/19/20 19:27 Hemoglobin C Crystals Not Reportable 09/19/20 19:27 Schistocytes Not Reportable 09/19/20 19:27 Malaria parasites Not Reportable 09/19/20 19:27 Dequan Bodies Not Reportable 09/19/20 19:27 Hem Pathologist Commnt No 09/19/20 19:27 D-Dimer 137.15 ng/mlDDU (0-234) 09/20/20 05:01 Sodium 138 mmol/L (137-145) 09/20/20 05:01 Potassium 4.3 mmol/L (3.6-5.0) 09/20/20 05:01 Chloride 101.8 mmol/L (98-107) 09/20/20 05:01 Carbon Dioxide 27 mmol/L (22-30) 09/20/20 05:01 Anion Gap 14 mmol/L 09/20/20 05:01 BUN 7 mg/dL (9-20) L 09/20/20 05:01 Creatinine 0.7 mg/dL (0.8-1.3) L 09/20/20 05:01 Estimated GFR > 60 ml/min 09/20/20 05:01 BUN/Creatinine Ratio 10 % 09/20/20 05:01 Glucose 159 mg/dL (75-100) H 09/20/20 05:01 Hemoglobin A1c 6.0 % (4-6) 09/19/20 19:27 Calcium 9.4 mg/dL (8.4-10.2) 09/20/20 05:01 Ferritin 98.3 ng/mL (30.0-300.0) 09/20/20 05:01 Total Bilirubin 0.50 mg/dL (0.1-1.2) 09/20/20 05:01 AST 18 units/L (5-40) 09/20/20 05:01 ALT 26 units/L (7-56) 09/20/20 05:01 Alkaline Phosphatase 132 units/L (35-129) H 09/20/20 05:01 Lactate Dehydrogenase 148 units/L (91-180) 09/20/20 05:01 C-Reactive Protein 0.70 mg/dL (0.00-1.30) 09/20/20 05:01 NT-Pro-B Natriuret Pep 163.5 pg/mL (0-900) 09/19/20 19:27 Total Protein 7.9 g/dL (6.3-8.2) 09/20/20 05:01 Albumin 4.0 g/dL (3.9-5) 09/20/20 05:01 Albumin/Globulin Ratio 1.0 % 09/20/20 05:01 Procalcitonin < 0.05 ng/mL (<0.15) 09/20/20 05:01 Coronavirus (PCR) Negative (Negative) 09/20/20 09:23 Microbiology: Microbiology 09/19/20 19:27 Peripheral/Venous Blood Culture - Preliminary NO GROWTH AFTER 24 HOURS 09/19/20 19:27 Peripheral/Venous Blood Culture - Preliminary NO GROWTH AFTER 24 HOURS Active Medications - Current Medications Current Medications: Generic Name Dose Route Start Last Admin Trade Name Freq PRN Reason Stop Dose Admin Acetaminophen 650 mg 09/19/20 23:22 Acetaminophen 325 Mg Tab PO Q4H PRN Pain MILD(1-3)/Fever >100.5/GANDARA Hydrocodone Bitart/Acetaminophen 2 each 09/19/20 23:22 Hydrocodone/Acetaminophen 5-325 Mg Tab PO Q6H PRN Pain, Moderate (4-6) Al Hydrox/Mg Hydrox/Simethicone 30 ml 09/19/20 23:22 Alum-Mag Hydroxide-Simethicone [phone]/5ml Oral Liqd 30 Ml PO Q4H PRN Indigestion Albuterol 2.5 mg 09/19/20 23:22 Albuterol 2.5 Mg/3 Ml Nebu IH Q4HRT PRN Shortness Of Breath Albuterol/Ipratropium 1 ampul 09/20/20 02:00 09/21/20 09:14 Ipratropium/Albuterol Sulfate 3 Ml Ampul.Neb IH 1 ampul Q6HRT RADHA Administration Ascorbic Acid 500 mg 09/20/20 10:00 09/21/20 12:47 Ascorbic Acid 500 Mg Tab PO 500 mg QDAY RADHA Administration Cholecalciferol 1,000 unit 09/20/20 10:00 09/21/20 12:47 Cholecalciferol (Vit D3) 1000 Unit (25 Mcg) Tab PO 1,000 unit QDAY RADHA Administration Dexamethasone 6 mg 09/20/20 10:00 09/21/20 11:47 Dexamethasone 4 Mg/Ml Vial IV 6 mg DAILY RADHA Administration Enoxaparin Sodium 40 mg 09/20/20 10:00 09/21/20 11:48 Enoxaparin 40 Mg/0.4 Ml Inj SUB-Q 40 mg QDAY RADHA Administration Famotidine 20 mg 09/20/20 10:00 09/21/20 11:48 Famotidine 20 Mg/2 Ml Inj IV 20 mg BID RADHA Administration Ceftriaxone Sodium 1 gm in 50 mls @ 100 mls/hr 09/20/20 18:00 09/20/20 18:18 Rocephin/Ns 1 Gm/50 Ml IV 100 mls/hr Q24H RADHA Administration Protocol Ibuprofen 600 mg 09/19/20 23:22 Ibuprofen 600 Mg Tab PO Q6H PRN Pain, Mild (1-3) Magnesium Hydroxide 30 ml 09/19/20 23:22 Magnesium Hydroxide (Mom) Oral Liqd Udc PO Q4H PRN Constipation Metoclopramide HCl 10 mg 09/19/20 23:22 Metoclopramide 10 Mg/2 Ml Inj IV Q6H PRN Nausea And Vomiting Naloxone HCl 0.1 mg 09/19/20 23:22 Naloxone 0.4 Mg/1 Ml Inj IV Q2MIN PRN Res Rate </= 8 or 02 SAT < 92% Ondansetron HCl 4 mg 09/19/20 23:22 Ondansetron 4 Mg/2 Ml Inj IV Q8H PRN Nausea And Vomiting Senna 8.6 mg 09/19/20 23:22 Sennosides 8.6 Mg Tab PO Q12HR PRN Constipation Sodium Chloride 10 ml 09/19/20 23:22 Sodium Chloride 0.9% 10 Ml Flush Syringe IV PRN PRN LINE FLUSH Zinc Sulfate 220 mg 09/20/20 10:00 09/21/20 11:47 Zinc Sulfate 220 Mg Cap PO 220 mg QDAY RADHA Administration
[2020-09-21] MEDS: cefTRIAXone/NS 1 GM/50 ML 1 GM/50 ML BAG IV SCH (17:57)
[2020-09-22] MEDS: FAMOTIDINE 20 MG/2 ML INJ IV SCH ×4 (00:30→22:50)
[2020-09-22] MEDS: IPRATROPIUM/ALBUTEROL SULFATE 3 ML AMPUL.NEB IH SCH ×5 (04:11→21:17)
--- NOTE | 2020-09-22 09:06 | Progress Note ---
Assessment and Plan Cultures: SARS CoV2 PCR: negative 09/19/2020 blood culture: In process A/P: 65-year-old male with tobacco use, peripheral vascular disease, alcohol dependence, hypertension admitted with shortness of breath. [place] [facility] [place] and [place]itis, discharged on p.o. antibiotics. Unvaccinated for COVID-19: #Bilateral pneumonia versus bronchitis. CRP is low. Procalcitonin low. COVID- 19 PCR is Negative. ? COPD #COVID-19 PUI #Tobacco and alcohol abuse Recs: Stopped antibiotics Steroids per primary team for possible COPD/bronchitis ID will sign off. Please call questions. Hansel Bryant MD [facility] O: [phone] F: [phone] Subjective Date of service: 09/22/20 Interval history: Normal white count, Covid negative. Cultures remain negative. On room air. Objective - Exam Narrative Exam: Physical Exam: Constitutional: Alert, cooperative. No acute distress Head, Ears, Nose: Normocephalic, atraumatic. Eyes: Conjunctivae/corneas clear. No icterus. No ptosis. Neck: Supple, no meningeal signs Oral: dentition fair, no thrush Cardiovascular: S1, S2 normal. Respiratory: Good air entry, clear to auscultation bilaterally GI: Soft, non-tender; bowel sounds normal. No peritoneal signs. Musculoskeletal: No pedal edema, no cyanosis. Skin: No rash or abscess Hem/Lymphatic: No palpable cervical or supraclavicular nodes. Psych: Mood ok. Affect normal Neurological: Awake, alert, oriented. No gross abnormality - Constitutional Vitals: Vital Signs Temp Pulse Resp BP Pulse Ox 98.2 F 111 H 20 140/97 100 09/19/20 19:24 09/22/20 04:00 09/22/20 04:00 09/22/20 03:17 09/22/20 04:41 - Labs CBC & Chem 7: 09/20/20 05:01 09/20/20 05:01
[2020-09-22] MEDS: dexAMETHasone 4 MG/ML VIAL IV SCH (09:11)
[2020-09-22] MEDS: CHOLECALCIFEROL (VIT D3) 1000 UNIT (25 mcg) TAB PO SCH (09:11)
[2020-09-22] MEDS: ENOXAPARIN 40 MG/0.4 ML INJ SUB-Q SCH (09:11)
[2020-09-22] MEDS: ASCORBIC ACID 500 MG TAB PO SCH (09:12)
[2020-09-22] MEDS: ZINC SULFATE 220 MG CAP PO SCH (09:12)
--- NOTE | 2020-09-22 09:23 | Progress Note ---
Assessment and Plan Assessment and plan: Acute hypoxic respiratory failure. Etiology secondary to bilateral pneumonia COPD. Bilateral pneumonia. Continue IV antibiotics and follow-up repeat chest x-ray. COVID-19 testing negative. Discontinue dexamethasone. Acute COPD exacerbation. Continue IV steroids and taper Tobacco abuse. Patient will be counseled on tobacco cessation prior to discharge. EtOH abuse. [facility] protocol. History Interval history: No new issues overnight Hospitalist Physical - Constitutional Vitals: Temp Pulse Resp BP Pulse Ox 98.2 F 111 H 20 140/97 100 09/19/20 19:24 09/22/20 04:00 09/22/20 04:00 09/22/20 03:17 09/22/20 04:41 General appearance: Present: mild distress, well-nourished - EENT Eyes: Present: PERRL, EOM intact ENT: hearing intact, clear oral mucosa, dentition normal - Neck Neck: Present: supple, normal ROM - Respiratory Respiratory effort: normal Respiratory: bilateral: CTA - Cardiovascular Rhythm: regular Heart Sounds: Present: S1 & S2. Absent: gallop, rub - Extremities Extremities: no ischemia, No edema, Full ROM - Abdominal General gastrointestinal: soft, non-tender, non-distended, normal bowel sounds - Integumentary Integumentary: Present: clear, warm, dry - Neurologic Neurologic: CNII-XII intact, moves all extremities Results - Labs CBC & Chem 7: 09/20/20 05:01 09/20/20 05:01 Labs: Laboratory Last Values WBC 9.3 K/mm3 (4.5-11.0) 09/20/20 05:01 RBC 4.70 M/mm3 (3.65-5.03) 09/20/20 05:01 Hgb 14.6 gm/dl (11.8-15.2) 09/20/20 05:01 Hct 44.0 % (35.5-45.6) 09/20/20 05:01 MCV 94 fl (84-94) 09/20/20 05:01 MCH 31 pg (28-32) 09/20/20 05:01 MCHC 33 % (32-34) 09/20/20 05:01 RDW 13.8 % (13.2-15.2) 09/20/20 05:01 Plt Count 264 K/mm3 (140-440) 09/20/20 05:01 Lymph % (Auto) 18.8 % (13.4-35.0) 09/20/20 05:01 [place] % (Auto) 1.9 % (0.0-7.3) 09/20/20 05:01 Eos % (Auto) 0.5 % (0.0-4.3) 09/20/20 05:01 Baso % (Auto) 0.5 % (0.0-1.8) 09/20/20 05:01 Lymph # (Auto) 1.7 K/mm3 (1.2-5.4) 09/20/20 05:01 [place] # (Auto) 0.2 K/mm3 (0.0-0.8) 09/20/20 05:01 Eos # (Auto) 0.0 K/mm3 (0.0-0.4) 09/20/20 05:01 Baso # (Auto) 0.0 K/mm3 (0.0-0.1) 09/20/20 05:01 Add Manual Diff Complete 09/19/20 19:27 Total Counted 100 09/19/20 19:27 Seg Neutrophils % 78.3 % (40.0-70.0) H 09/20/20 05:01 Seg Neuts % (Manual) 42.0 % (40.0-70.0) 09/19/20 19:27 Lymphocytes % (Manual) 13.0 % (13.4-35.0) L 09/19/20 19:27 Monocytes % (Manual) 6.0 % (0.0-7.3) 09/19/20 19:27 Eosinophils % (Manual) 38.0 % (0.0-4.3) H 09/19/20 19:27 Basophils % (Manual) 1.0 % (0.0-1.8) 09/19/20 19:27 Nucleated RBC % Not Reportable 09/19/20 19:27 Seg Neutrophils # 7.3 K/mm3 (1.8-7.7) 09/20/20 05:01 Seg Neutrophils # Man 6.0 K/mm3 (1.8-7.7) 09/19/20 19:27 Band Neutrophils # 0.0 K/mm3 09/19/20 19:27 Lymphocytes # (Manual) 1.9 K/mm3 (1.2-5.4) 09/19/20 19:27 Abs React Lymphs (Man) 0.0 K/mm3 09/19/20 19:27 Monocytes # (Manual) 0.9 K/mm3 (0.0-0.8) H 09/19/20 19:27 Eosinophils # (Manual) 5.4 K/mm3 (0.0-0.4) H 09/19/20 19:27 Basophils # (Manual) 0.1 K/mm3 (0.0-0.1) 09/19/20 19:27 Metamyelocytes # 0.0 K/mm3 09/19/20 19:27 Myelocytes # 0.0 K/mm3 09/19/20 19:27 Promyelocytes # 0.0 K/mm3 09/19/20 19:27 Blast Cells # 0.0 K/mm3 09/19/20 19:27 WBC Morphology Not Reportable 09/19/20 19:27 Hypersegmented Neuts Not Reportable 09/19/20 19:27 Hyposegmented Neuts Not Reportable 09/19/20 19:27 Hypogranular Neuts Not Reportable 09/19/20 19:27 Smudge Cells Not Reportable 09/19/20 19:27 Toxic Granulation Not Reportable 09/19/20 19:27 Toxic Vacuolation Not Reportable 09/19/20 19:27 Dohle Bodies Not Reportable 09/19/20 19:27 Pelger-Huet Anomaly Not Reportable 09/19/20 19:27 Prosper Rods Not Reportable 09/19/20 19:27 Platelet Estimate Not Reportable 09/19/20 19:27 Clumped Platelets Not Reportable 09/19/20 19:27 Plt Clumps, EDTA Not Reportable 09/19/20 19:27 Large Platelets Not Reportable 09/19/20 19:27 Giant Platelets Not Reportable 09/19/20 19:27 Platelet Satelliting Not Reportable 09/19/20 19:27 Plt Morphology Comment Not Reportable 09/19/20 19:27 RBC Morphology Normal 09/19/20 19:27 Dimorphic RBCs Not Reportable 09/19/20 19:27 Polychromasia Not Reportable 09/19/20 19:27 Hypochromasia Not Reportable 09/19/20 19:27 Poikilocytosis Not Reportable 09/19/20 19:27 Anisocytosis Not Reportable 09/19/20 19:27 Microcytosis Not Reportable 09/19/20 19:27 Macrocytosis Not Reportable 09/19/20 19:27 Spherocytes Not Reportable 09/19/20 19:27 Pappenheimer Bodies Not Reportable 09/19/20 19:27 Sickle Cells Not Reportable 09/19/20 19:27 Target Cells Not Reportable 09/19/20 19:27 Tear Drop Cells Not Reportable 09/19/20 19:27 Ovalocytes Not Reportable 09/19/20 19:27 Helmet Cells Not Reportable 09/19/20 19:27 Quintanilla-Bow Bodies Not Reportable 09/19/20 19:27 [place] Rings Not Reportable 09/19/20 19:27 Maxwell Cells Not Reportable 09/19/20 19:27 Bite Cells Not Reportable 09/19/20 19:27 Crenated Cell Not Reportable 09/19/20 19:27 Elliptocytes Not Reportable 09/19/20 19:27 Acanthocytes (Spur) Not Reportable 09/19/20 19:27 Rouleaux Not Reportable 09/19/20 19:27 Hemoglobin C Crystals Not Reportable 09/19/20 19:27 Schistocytes Not Reportable 09/19/20 19:27 Malaria parasites Not Reportable 09/19/20 19:27 Dequan Bodies Not Reportable 09/19/20 19:27 Hem Pathologist Commnt No 09/19/20 19:27 D-Dimer 137.15 ng/mlDDU (0-234) 09/20/20 05:01 Sodium 138 mmol/L (137-145) 09/20/20 05:01 Potassium 4.3 mmol/L (3.6-5.0) 09/20/20 05:01 Chloride 101.8 mmol/L (98-107) 09/20/20 05:01 Carbon Dioxide 27 mmol/L (22-30) 09/20/20 05:01 Anion Gap 14 mmol/L 09/20/20 05:01 BUN 7 mg/dL (9-20) L 09/20/20 05:01 Creatinine 0.7 mg/dL (0.8-1.3) L 09/20/20 05:01 Estimated GFR > 60 ml/min 09/20/20 05:01 BUN/Creatinine Ratio 10 % 09/20/20 05:01 Glucose 159 mg/dL (75-100) H 09/20/20 05:01 Hemoglobin A1c 6.0 % (4-6) 09/19/20 19:27 Calcium 9.4 mg/dL (8.4-10.2) 09/20/20 05:01 Ferritin 98.3 ng/mL (30.0-300.0) 09/20/20 05:01 Total Bilirubin 0.50 mg/dL (0.1-1.2) 09/20/20 05:01 AST 18 units/L (5-40) 09/20/20 05:01 ALT 26 units/L (7-56) 09/20/20 05:01 Alkaline Phosphatase 132 units/L (35-129) H 09/20/20 05:01 Lactate Dehydrogenase 148 units/L (91-180) 09/20/20 05:01 C-Reactive Protein 0.70 mg/dL (0.00-1.30) 09/20/20 05:01 NT-Pro-B Natriuret Pep 163.5 pg/mL (0-900) 09/19/20 19:27 Total Protein 7.9 g/dL (6.3-8.2) 09/20/20 05:01 Albumin 4.0 g/dL (3.9-5) 09/20/20 05:01 Albumin/Globulin Ratio 1.0 % 09/20/20 05:01 Procalcitonin < 0.05 ng/mL (<0.15) 09/20/20 05:01 Coronavirus (PCR) Negative (Negative) 09/20/20 09:23 Microbiology: Microbiology 09/19/20 19:27 Peripheral/Venous Blood Culture - Preliminary NO GROWTH AFTER 48 HOURS 09/19/20 19:27 Peripheral/Venous Blood Culture - Preliminary NO GROWTH AFTER 48 HOURS Active Medications - Current Medications Current Medications: Generic Name Dose Route Start Last Admin Trade Name Freq PRN Reason Stop Dose Admin Acetaminophen 650 mg 09/19/20 23:22 Acetaminophen 325 Mg Tab PO Q4H PRN Pain MILD(1-3)/Fever >100.5/GANDARA Hydrocodone Bitart/Acetaminophen 2 each 09/19/20 23:22 Hydrocodone/Acetaminophen 5-325 Mg Tab PO Q6H PRN Pain, Moderate (4-6) Al Hydrox/Mg Hydrox/Simethicone 30 ml 09/19/20 23:22 Alum-Mag Hydroxide-Simethicone [phone]/5ml Oral Liqd 30 Ml PO Q4H PRN Indigestion Albuterol 2.5 mg 09/19/20 23:22 Albuterol 2.5 Mg/3 Ml Nebu IH Q4HRT PRN Shortness Of Breath Albuterol/Ipratropium 1 ampul 09/20/20 02:00 09/22/20 04:12 Ipratropium/Albuterol Sulfate 3 Ml Ampul.Neb IH 1 ampul Q6HRT RADHA Administration Ascorbic Acid 500 mg 09/20/20 10:00 09/22/20 09:12 Ascorbic Acid 500 Mg Tab PO 500 mg QDAY RADHA Administration Cholecalciferol 1,000 unit 09/20/20 10:00 09/22/20 09:11 Cholecalciferol (Vit D3) 1000 Unit (25 Mcg) Tab PO 1,000 unit QDAY RADHA Administration Dexamethasone 6 mg 09/20/20 10:00 09/22/20 09:11 Dexamethasone 4 Mg/Ml Vial IV 6 mg DAILY RADHA Administration Enoxaparin Sodium 40 mg 09/20/20 10:00 09/22/20 09:11 Enoxaparin 40 Mg/0.4 Ml Inj SUB-Q 40 mg QDAY RADHA Administration Famotidine 20 mg 09/20/20 10:00 09/22/20 09:12 Famotidine 20 Mg/2 Ml Inj IV 20 mg BID RADHA Administration Ibuprofen 600 mg 09/19/20 23:22 Ibuprofen 600 Mg Tab PO Q6H PRN Pain, Mild (1-3) Magnesium Hydroxide 30 ml 09/19/20 23:22 Magnesium Hydroxide (Mom) Oral Liqd Udc PO Q4H PRN Constipation Metoclopramide HCl 10 mg 09/19/20 23:22 Metoclopramide 10 Mg/2 Ml Inj IV Q6H PRN Nausea And Vomiting Naloxone HCl 0.1 mg 09/19/20 23:22 Naloxone 0.4 Mg/1 Ml Inj IV Q2MIN PRN Res Rate </= 8 or 02 SAT < 92% Ondansetron HCl 4 mg 09/19/20 23:22 Ondansetron 4 Mg/2 Ml Inj IV Q8H PRN Nausea And Vomiting Senna 8.6 mg 09/19/20 23:22 Sennosides 8.6 Mg Tab PO Q12HR PRN Constipation Sodium Chloride 10 ml 09/19/20 23:22 Sodium Chloride 0.9% 10 Ml Flush Syringe IV PRN PRN LINE FLUSH Zinc Sulfate 220 mg 09/20/20 10:00 09/22/20 09:12 Zinc Sulfate 220 Mg Cap PO 220 mg QDAY RADHA Administration
[2020-09-22] MEDS: methylPREDNISolone Sod Succinate 40 MG/1 ML INJ IV SCH ×2 (12:16→22:50)
[2020-09-23 05:41] VITALS: BP 126/70
[2020-09-23] MEDS ORDERED: IPRATROPIUM/ALBUTEROL SULFATE 3 ML AMPUL.NEB IH SCH (08:00)
[2020-09-23] MEDS: CHOLECALCIFEROL (VIT D3) 1000 UNIT (25 mcg) TAB PO SCH (09:44)
[2020-09-23] MEDS: ASCORBIC ACID 500 MG TAB PO SCH (09:44)
[2020-09-23] MEDS: FAMOTIDINE 20 MG/2 ML INJ IV SCH (09:44)
[2020-09-23] MEDS: ZINC SULFATE 220 MG CAP PO SCH (09:44)
[2020-09-23] MEDS: ENOXAPARIN 40 MG/0.4 ML INJ SUB-Q SCH (09:44)
[2020-09-23] MEDS: methylPREDNISolone Sod Succinate 40 MG/1 ML INJ IV SCH (09:44)
--- NOTE | 2020-09-23 12:42 | Discharge Summary ---
Providers - Providers Date of Admission: 09/19/20 22:30 Date of discharge: 09/23/20 Attending physician: ANALIA MEYER 09/19/20 23:52 Consult to Physician [CONS] Routine Comment: Consulting Provider: GATEANO SERVIN Physician Instructions: Reason For Exam: pui Primary care physician: YOBANI MI MD Hospitalization Condition: Stable Pertinent studies: Chest x-ray mild bilateral airspace disease. Hospital course: Patient admitted with acute hypoxic respiratory failure secondary to COPD and underlying pneumonia. Patient defervesced well over 4 days. Patient was afebrile for greater than 72 hours. Oxygenating well. Pain was oxygenating stable without any O2. Able to get up use the bathroom walk around without any hypoxemia. Patient discharged course complicated by continued tobacco use. Patient also had evidence of alcohol withdrawal. Patient no longer was in DTs comfortable speaking alert oriented x3. Patient educated to stop drinking and also to stop smoking and this what was causing his COPD exacerbation continued tobacco abuse. Disposition: DC-01 TO HOME OR SELFCARE Final Discharge Diagnosis (Prints w/discharge instructions): Acute hypoxic respiratory failure #2 tobacco abuse #3 alcohol abuse #4 pneumonia community- acquired pneumonia - Discharge Diagnoses (1) Acute respiratory failure with hypoxia Status: Acute Comment: Secondary to COPD exacerbation. Will have steroid taper follow-up lab aid Dr. Lowell Dong in 5 days. (2) Community acquired pneumonia Status: Acute Comment: Patient will continue home on Levaquin for completion of 7 more days. Educated to stop smoking will be given nicotine patch. (3) Alcoholism /alcohol abuse Status: Acute (4) Encephalopathy acute Status: Acute Comment: Secondary to alcohol use. Patient has been educated to stop drinking. Core Measure Documentation - Palliative Care Palliative Care/ Comfort Measures: Not Applicable - Core Measures Any of the following diagnoses?: none Exam - Constitutional Vitals: Temp Pulse Resp BP Pulse Ox 97.7 F 60 18 126/70 95 09/23/20 05:39 09/23/20 07:52 09/23/20 07:52 09/23/20 05:39 09/23/20 05:39 General appearance: Present: no acute distress, well-nourished - EENT Eyes: Present: PERRL ENT: hearing intact, clear oral mucosa - Neck Neck: Present: supple, normal ROM - Respiratory Respiratory effort: normal Respiratory: bilateral: wheezing (Mild wheezing) - Cardiovascular Heart Sounds: Present: S1 & S2. Absent: rub, click - Extremities Extremities: pulses symmetrical, No edema Peripheral Pulses: within normal limits - Abdominal General gastrointestinal: Present: soft, non-tender, non-distended, normal bowel sounds Male genitourinary: Present: normal - Integumentary Integumentary: Present: clear, warm, dry - Musculoskeletal Musculoskeletal: gait normal, strength equal bilaterally - Psychiatric Psychiatric: appropriate mood/affect, intact judgment & insight - Neurologic Neurologic: CNII-XII intact, moves all extremities Plan Activity: fall precautions Weight Bearing Status: Full Weight Bearing Diet: regular Special Instructions: other (Smoking cessation, alcohol cessation) Follow up with: DELTA VILLATORO MD [Referring] - 3-5 Days Prescriptions: carvediloL 6.25 mg PO DAILY #60 HYDROcodone/APAP 5-325 [[place] 5-325 mg TAB] 2 each PO Q6H PRN #14 tablet PRN Reason: Pain, Moderate (4-6) Amlodipine Besylate [Norvasc] 5 mg PO DAILY #30 Famotidine [Pepcid] 20 mg PO BID #30 tablet Clopidogrel [Plavix] 75 mg PO QDAY #30
[2020-09-23] MEDS ORDERED: FAMOTIDINE 20 MG TAB PO SCH (22:00)
--- NOTE | 2020-09-26 07:04 | XRay Report ---
CHEST 2 VIEWS INDICATION: Pneumonia. COMPARISON: 09/19/2020 FINDINGS: Support devices: None. Heart: Within normal limits. Lungs/pleura: Bibasilar airspace disease has resolved since the previous exam. The lungs are general ly clear with no evidence for infiltrate, pleural fluid or pneumothorax. Additional findings: None. IMPRESSION: Unremarkable chest films. Bibasilar airspace disease has resolved. Signer Name: Jorge Rosario Jr, MD Signed: 09/23/2020 8:33 AM Workstation Name: [id number]
== END 2020-09-23 14:45 | disposition home or self-care (01) ==
LOC: ED 18:50 → 3A 22:30 → CC1 09-22 01:00 → 3A 09-22 02:24
PROVIDERS: ADMIT Hospitalist; ATTEND Internal Medicine
DX: J96.01 Acute respiratory failure with hypoxia (principal); Z20.822 Contact with and (suspected) exposure to COVID-19; J44.1 Chronic obstructive pulmonary disease with (acute) exacerbation; J18.9 Pneumonia, unspecified organism; D72.829 Elevated white blood cell count, unspecified; I10 Essential (primary) hypertension; M25.59 Pain in other specified joint; Z87.891 Personal history of nicotine dependence; Z79.899 Other long term (current) drug therapy; Z98.890 Other specified postprocedural states
CPT/HCPCS: 36415; 71045; 71046; 80048; 80053; 82728; 82947; 83036; 83615; 83880; 84145; 85025; 85379; 86140; 87040; 94640; 96365; 96366; 96368; 96372; 96375; 96376; 99284; G0378; J0456; J0696; J1100; J1650; J2920; U0003; 85007; 94644

== ENCOUNTER 2020-10-26 20:08 | Emergency (ER) | payer MEDICARE ==
[2020-10-26 21:11] VITALS: BP 156/99
[2020-10-26] MEDS ORDERED: ASPIRIN 325 MG TAB PO ONE (21:28)
[2020-10-26] MEDS ORDERED: IPRATROPIUM/ALBUTEROL SULFATE 3 ML AMPUL.NEB IH ONE ×2 (21:28→23:48)
[2020-10-26] MEDS ORDERED: methylPREDNISolone Sod Succinate 125 MG/2 ML INJ IV ONE (21:28)
--- NOTE | 2020-10-26 21:31 | Event Note ---
ED Screening Note Date of service: 10/26/20 Time: 21:29 ED Screening Note: Patient is a 65-year-old -Mal[place]ian male with a history of hypertension who presents to the ED with complaint of acute onset persistent shortness of breath on exertion, persistent dry cough and generalized weakness for the last 5 days. Patient was initially evaluated in this ED 2 days ago and diagnosed with community-acquired pneumonia. Patient states that he did not fill some prescription because the pharmacy did not give him the medication that was given to him. Patient states that his symptoms got worse in the last 2 days such that any exertion or movement makes his shortness of breath worse. Patient denies fever, chills, nausea, vomiting, chest pain, abdominal pain, back pain, change in vision, headache, dizziness or syncope. This initial assessment/diagnostic orders/clinical plan/treatment(s) is/are subject to change based on patients health status, clinical progression and re- assessment by fellow clinical providers in the ED. Further treatment and workup at subsequent clinical providers discretion. Patient/guardian urged not to elope from the ED as their condition may be serious if not clinically assessed and managed. Initial orders include: CBC, CMP, EKG, BNP, troponin, chest x-ray
--- NOTE | 2020-10-26 21:50 | XRay Report ---
CHEST 2 VIEWS INDICATION / CLINICAL INFORMATION: dyspnea. COMPARISON: 2 views of the chest from 09/23/2020 FINDINGS: SUPPORT DEVICES: None. HEART / MEDIASTINUM: No significant abnormality. LUNGS / PLEURA: No significant pulmonary abnormality. No significant pleural effusion. No pneumothora x. ADDITIONAL FINDINGS: No significant additional findings. IMPRESSION: 1. No acute abnormality of the chest. Signer Name: Terry Lee MD Signed: 10/26/2020 9:46 PM Workstation Name: [id number]
[2020-10-26 21:59] LABS: Basophils # (Auto) 0.1 K/mm3 (0.0-0.1); Hemoglobin 15.3 gm/dl (11.8-15.2); Lymphocytes % (Auto) 36.5 % (13.4-35.0); Mean Corpuscular HGB Conc 33 % (32-34); Mean Corpuscular Volume 91 fl (84-94); Monocytes # (Auto) 0.9 K/mm3 (0.0-0.8); Monocytes % (Auto) 10.7 % (0.0-7.3); Platelet Count 262 K/mm3 (140-440); Red Blood Count 5.04 M/mm3 (3.65-5.03); Red Cell Distribution Width 12.7 % (13.2-15.2)
[2020-10-26 22:32] LABS: Alanine Aminotransferase 13 units/L (7-56); Albumin 4.6 g/dL (3.9-5); BUN/Creatinine Ratio 8; Blood Urea Nitrogen 6 mg/dL (9-20); Calcium 9.2 mg/dL (8.4-10.2); Hemolysis Index 10
[2020-10-26] MEDS ORDERED: DOXYCYCLINE 100 MG CAP PO ONE (23:48)
[2020-10-26] MEDS ORDERED: predniSONE 20 MG TAB PO ONE (23:48)
--- NOTE | 2020-10-26 23:52 | Emergency Department Report ---
ED Shortness of Breath HPI - General Chief Complaint: Dyspnea/Respdistress Stated Complaint: PNEUMONIA Time Seen by Provider: 10/26/20 22:24 Source: patient, EMS Mode of arrival: Ambulatory Limitations: No Limitations - History of Present Illness Initial Comments: Chief complaint: Trouble breathing HPI: 65-year-old male with history of respiratory failure, pneumonia, tobacco dependence, alcohol dependence who presents with shortness of breath for 4 w eeks. Patient is a productive cough wheezing. Patient states that he has had persistent symptoms since being discharged 1 month ago September 23, 2020 He was never told that he had diagnosis of COPD. He was referred to Dr. Dong cloud operations engineer. However he has not followed up. MD Complaint: shortness of breath, cough -: Gradual, week(s) (4 weeks since being discharged from the hospital) Severity: moderate Consistency: constant Improves With: nothing Known History Of: other (Tobacco dependence recent pneumonia recent diagnosis of COPD) - Related Data Previous Rx's Medication Instructions Recorded Last Taken Type Acetaminophen [Acetaminophen TAB] 650 mg PO Q4H PRN tablet 09/23/20 Unknown Rx Amlodipine Besylate [Norvasc] 5 mg PO DAILY #30 09/23/20 Unknown Rx Clopidogrel [Plavix] 75 mg PO QDAY #30 09/23/20 Unknown Rx Famotidine [Pepcid] 20 mg PO BID #30 tablet 09/23/20 Unknown Rx HYDROcodone/APAP 5-325 [[place] 2 each PO Q6H PRN #14 tablet 09/23/20 Unknown Rx 5-325 mg TAB] Nicotine [Habitrol] 14 mg TD DAILY #30 patch 09/23/20 Unknown Rx carvediloL 6.25 mg PO DAILY #60 09/23/20 Unknown Rx levoFLOXacin [Levaquin] 750 mg PO QDAY #7 tablet 09/23/20 Unknown Rx methylPREDNISolone [Medrol 4MG 4 mg PO QDAY #1 tab.ds.pk 09/23/20 Unknown Rx DOSEPAK (21 tabs)] Albuterol Mdi (or & Nicu Only) 2 puff IH QID PRN #8.5 gram 10/26/20 Unknown Rx [ProAir HFA Inhaler] Doxycycline Hyclate 100 mg PO BID 7 Days #14 capsule 10/26/20 Unknown Rx Prednisone [predniSONE 10 mg 10 mg PO .TAPER #1 tab.ds.pk 10/26/20 Unknown Rx (6-Day Pack, 21 Tabs)] Allergies Allergy/AdvReac Type Severity Reaction Status Date / Time No Known Allergies Allergy Verified 09/22/20 03:39 ED Review of Systems ROS: Stated complaint: PNEUMONIA Other details as noted in HPI ED Past Medical Hx - Past Medical History Hx Hypertension: Yes Hx Diabetes: Yes Hx HIV: No - Surgical History Additional Surgical History: ORIF left lower extremity, vascular procedure right lower extremity, neck surgery status post trauma - Social History Smoking Status: Former Smoker - Medications Home Medications: Home Medications Medication Instructions Recorded Confirmed Last Taken Type Acetaminophen [Acetaminophen TAB] 650 mg PO Q4H PRN tablet 09/23/20 Unknown Rx Amlodipine Besylate [Norvasc] 5 mg PO DAILY #30 09/23/20 Unknown Rx Clopidogrel [Plavix] 75 mg PO QDAY #30 09/23/20 Unknown Rx Famotidine [Pepcid] 20 mg PO BID #30 tablet 09/23/20 Unknown Rx HYDROcodone/APAP 5-325 [[place] 2 each PO Q6H PRN #14 tablet 09/23/20 Unknown Rx 5-325 mg TAB] Nicotine [Habitrol] 14 mg TD DAILY #30 patch 09/23/20 Unknown Rx carvediloL 6.25 mg PO DAILY #60 09/23/20 Unknown Rx levoFLOXacin [Levaquin] 750 mg PO QDAY #7 tablet 09/23/20 Unknown Rx methylPREDNISolone [Medrol 4MG 4 mg PO QDAY #1 tab.ds.pk 09/23/20 Unknown Rx DOSEPAK (21 tabs)] Albuterol Mdi (or & Nicu Only) 2 puff IH QID PRN #8.5 gram 10/26/20 Unknown Rx [ProAir HFA Inhaler] Doxycycline Hyclate 100 mg PO BID 7 Days #14 capsule 10/26/20 Unknown Rx Prednisone [predniSONE 10 mg 10 mg PO .TAPER #1 tab.ds.pk 10/26/20 Unknown Rx (6-Day Pack, 21 Tabs)] ED Physical Exam - General Limitations: No Limitations ED Course Vital Signs 10/26/20 21:05 Temperature 98.1 F Pulse Rate 91 H Respiratory 22 Rate Blood Pressure 156/99 O2 Sat by Pulse 95 Oximetry ED Medical Decision Making - Lab Data Result diagrams: 10/26/20 21:50 10/26/20 21:50 - Radiology Data Radiology results: report reviewed Patient Name: JAZLYN TORRES Gender: Male Date of : 1955 Referring Provider: KASSANDRA VENTURA Organization: [facility] Accession Number: [id number] Requested Date: October 26, 2020 21:27 Report Status: Final Requested Procedure: 1 Procedure Description: XR chest routine 2V Modality: XR Findings Reporting MD: Terry Lee Dictation Time: October 26, 2020 20:46 Hyster Driver: Not available Chute Builder Date: CHEST 2 VIEWS INDICATION / CLINICAL INFORMATION: dyspnea. COMPARISON: 2 views of the chest from 09/23/2020 FINDINGS: SUPPORT DEVICES: None. HEART / MEDIASTINUM: No significant abnormality. LUNGS / PLEURA: No significant pulmonary abnormality. No significant pleural effusion. No pneumothorax. ADDITIONAL FINDINGS: No significant additional findings. IMPRESSION: 1. No acute abnormality of the chest. Signer Name: Terry Lee MD Signed: 10/26/2020 8:46 PM Workstation Name: [email or web address] - Medical Decision Making This is a 65-year-old male who presents with shortness of breath wheezing cough for 4 weeks is discharged from the hospital for respiratory failure and pneumonia. I do agree my hospitalist colleague that patient has COPD exacerbation. Patient was not aware of this diagnosis. Patient was referred to cloud operations engineer. He is yet to follow-up with cloud operations engineer. He was unaware of this referral. I have prescribed albuterol MDI, prednisone taper and doxycycline. I strongly recommended tobacco cessation. Patient received DuoNeb, prednisone and doxycycline in the emergency department. Critical care attestation.: If time is entered above; I have spent that time in minutes in the direct care of this critically ill patient, excluding procedure time. ED Disposition Clinical Impression: COPD exacerbation Disposition: 01 HOME / SELF CARE / HOMELESS Is pt being admited?: No Does the pt Need Aspirin: No Condition: Stable Instructions: Chronic Obstructive Pulmonary Disease, [id number], Chronic Obstructive Pulmonary Disease (ED) Prescriptions: Doxycycline Hyclate 100 mg PO BID 7 Days #14 capsule Prednisone [predniSONE 10 mg (6-Day Pack, 21 Tabs)] 10 mg PO .TAPER #1 tab.ds.pk Albuterol Mdi (or & Nicu Only) [ProAir HFA Inhaler] 2 puff IH QID PRN #8.5 gram PRN Reason: Shortness Of Breath Referrals: EDGAR DONG MD [Staff Physician] - 3-5 Days
== END 2020-10-27 01:12 | disposition home or self-care (01) ==
LOC: ED 20:08
DX: J44.1 Chronic obstructive pulmonary disease with (acute) exacerbation (principal); I10 Essential (primary) hypertension; E11.8 Type 2 diabetes mellitus with unspecified complications; Z98.890 Other specified postprocedural states; Z87.891 Personal history of nicotine dependence
CPT/HCPCS: 36415; 71046; 80053; 83880; 84484; 85025; 94640; 99284; J7512

== ENCOUNTER 2021-02-03 19:05 | Emergency (ER) | payer MEDICARE ==
[2021-02-03 19:34] VITALS: BP 179/103
--- NOTE | 2021-02-03 20:37 | Event Note ---
ED Screening Note ED Screening Note: Patient presents for shortness of breath for 2 months He states his symptoms increase at night He has shortness of breath, wheezing, cough He reports he stopped smoking 3 months ago He reports that he saw a lung specialist and is prescribed an albuterol inhaler He does not use nebulizer treatments at home No allergies to medicines Initial oxygen saturation is 92% on room air, patient placed on oxygen and oxygen improved to 100% On exam he has wheezing bilaterally This initial assessment/diagnostic orders/clinical plan/treatment(s) is/are subject to change based on patients health status, clinical progression and re- assessment by fellow clinical providers in the ED. Further treatment and workup at subsequent clinical providers discretion. Patient/guardian urged not to elope from the ED as their condition may be serious if not clinically assessed and managed. Initial orders include: Labs, x-ray, meds
--- NOTE | 2021-02-03 21:13 | XRay Report ---
CHEST 2 VIEWS INDICATION / CLINICAL INFORMATION: sob, wheezing, cough. COMPARISON: 10/26/2020 FINDINGS: SUPPORT DEVICES: None. HEART / MEDIASTINUM: No significant abnormality. LUNGS / PLEURA: No significant pulmonary or pleural abnormality. No pneumothorax. ADDITIONAL FINDINGS: No significant additional findings. IMPRESSION: 1. No acute findings. Signer Name: Biju Merritt DO Signed: 02/03/2021 9:08 PM Workstation Name: [email or web address]
--- NOTE | 2021-02-03 21:27 | Emergency Department Report ---
ED Shortness of Breath HPI - General Chief Complaint: Dyspnea/Respdistress Stated Complaint: SOB Time Seen by Provider: 02/03/21 21:18 Source: patient Mode of arrival: Ambulatory Limitations: No Limitations - History of Present Illness Initial Comments: 65-year-old male with a past medical history of COPD and PAD with history of vascular procedure with question stenting of right lower extremity presents to the hospital with complaints of wheezing and shortness of breath progressively worsening over the last several weeks. Patient was recently diagnosed with COPD and prescribed a albuterol inhaler after consultation with the managed services consultant. He stopped smoking cigarettes 3 months ago. He complains of nonproductive cough, wheezing, and shortness of breath not alleviated by inhaler. He does not currently have nebulized treatments or inhaled steroids at home. He is scheduled for a vascular procedure of the left lower extremity and outpatient vascular clinic tomorrow. Patient is initial room air saturation 92% improving with supplemental oxygen. Patient denies fever. He is unvaccinated for Covid - Related Data Previous Rx's Medication Instructions Recorded Last Taken Type Acetaminophen [Acetaminophen TAB] 650 mg PO Q4H PRN tablet 09/23/20 Unknown Rx Amlodipine Besylate [Norvasc] 5 mg PO DAILY #30 09/23/20 Unknown Rx Clopidogrel [Plavix] 75 mg PO QDAY #30 09/23/20 Unknown Rx Famotidine [Pepcid] 20 mg PO BID #30 tablet 09/23/20 Unknown Rx HYDROcodone/APAP 5-325 [Downs 2 each PO Q6H PRN #14 tablet 09/23/20 Unknown Rx 5-325 mg TAB] Nicotine [Habitrol] 14 mg TD DAILY #30 patch 09/23/20 Unknown Rx carvediloL 6.25 mg PO DAILY #60 09/23/20 Unknown Rx levoFLOXacin [Levaquin] 750 mg PO QDAY #7 tablet 09/23/20 Unknown Rx methylPREDNISolone [Medrol 4MG 4 mg PO QDAY #1 tab.ds.pk 09/23/20 Unknown Rx DOSEPAK (21 tabs)] Albuterol Mdi (or & Nicu Only) 2 puff IH QID PRN #8.5 gram 10/26/20 Unknown Rx [ProAir HFA Inhaler] Doxycycline Hyclate 100 mg PO BID 7 Days #14 capsule 10/26/20 Unknown Rx Prednisone [predniSONE 10 mg 10 mg PO .TAPER #1 tab.ds.pk 10/26/20 Unknown Rx (6-Day Pack, 21 Tabs)] Allergies Allergy/AdvReac Type Severity Reaction Status Date / Time No Known Allergies Allergy Verified 02/03/21 20:08 ED Review of Systems ROS: Stated complaint: SOB Other details as noted in HPI Comment: All other systems reviewed and negative ED Past Medical Hx - Past Medical History Hx Hypertension: Yes Hx Diabetes: Yes Hx HIV: No - Surgical History Additional Surgical History: ORIF left lower extremity, vascular procedure right lower extremity, neck surgery status post trauma - Social History Smoking Status: Former Smoker - Medications Home Medications: Home Medications Medication Instructions Recorded Confirmed Last Taken Type Acetaminophen [Acetaminophen TAB] 650 mg PO Q4H PRN tablet 09/23/20 Unknown Rx Amlodipine Besylate [Norvasc] 5 mg PO DAILY #30 09/23/20 Unknown Rx Clopidogrel [Plavix] 75 mg PO QDAY #30 09/23/20 Unknown Rx Famotidine [Pepcid] 20 mg PO BID #30 tablet 09/23/20 Unknown Rx HYDROcodone/APAP 5-325 [Downs 2 each PO Q6H PRN #14 tablet 09/23/20 Unknown Rx 5-325 mg TAB] Nicotine [Habitrol] 14 mg TD DAILY #30 patch 09/23/20 Unknown Rx carvediloL 6.25 mg PO DAILY #60 09/23/20 Unknown Rx levoFLOXacin [Levaquin] 750 mg PO QDAY #7 tablet 09/23/20 Unknown Rx methylPREDNISolone [Medrol 4MG 4 mg PO QDAY #1 tab.ds.pk 09/23/20 Unknown Rx DOSEPAK (21 tabs)] Albuterol Mdi (or & Nicu Only) 2 puff IH QID PRN #8.5 gram 10/26/20 Unknown Rx [ProAir HFA Inhaler] Doxycycline Hyclate 100 mg PO BID 7 Days #14 capsule 10/26/20 Unknown Rx Prednisone [predniSONE 10 mg 10 mg PO .TAPER #1 tab.ds.pk 10/26/20 Unknown Rx (6-Day Pack, 21 Tabs)] ED Physical Exam - General Limitations: No Limitations - Other Other exam information: General: No acute distress Head: Atraumatic Eyes: normal appearance ENT: Moist mucous membranes Neck: Normal appearance, no midline tenderness Chest: Tachypnea, bilateral wheezing, mild accessory muscle use CV: Tachycardic regular rhythm Abdomen: Soft, normal bowel sounds, nontender, nondistended, no rebound or guarding Back: Normal inspection Extremity: Normal inspection, full range of motion, no calf tenderness or leg edema Neuro: Alert O x 3, no facial asymmetry, speech clear, no gross motor sensory deficit Psych: Appropriate behavior Skin: No rash ED Course Vital Signs 02/03/21 02/03/21 02/03/21 19:32 20:08 21:30 Temperature 98.1 F Pulse Rate 110 H Respiratory 18 Rate Blood Pressure 179/103 O2 Sat by Pulse 92 100 100 Oximetry ED Medical Decision Making - Lab Data Result diagrams: 02/03/21 20:46 02/03/21 20:46 Lab Results 02/03/21 02/03/21 Range/Units 20:46 20:46 WBC 8.2 (4.5-11.0) K/mm3 RBC 4.97 (3.65-5.03) M/mm3 Hgb 14.2 (11.8-15.2) gm/dl Hct 44.5 (35.5-45.6) % MCV 90 (84-94) fl MCH 29 (28-32) pg MCHC 32 (32-34) % RDW 14.3 (13.2-15.2) % Plt Count 280 (140-440) K/mm3 Eos % (Auto) 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 Manual Diff Complete Total Counted 100 Seg Neuts % (Manual) 33.0 L (40.0-70.0) % Lymphocytes % (Manual) 47.0 H (13.4-35.0) % Monocytes % (Manual) 4.0 (0.0-7.3) % Eosinophils % (Manual) 15.0 H (0.0-4.3) % Basophils % (Manual) 1.0 (0.0-1.8) % Nucleated RBC % Not Reportable Seg Neutrophils # Man 2.7 (1.8-7.7) K/mm3 Band Neutrophils # 0.0 K/mm3 Lymphocytes # (Manual) 3.9 (1.2-5.4) K/mm3 Abs React Lymphs (Man) 0.0 K/mm3 Monocytes # (Manual) 0.3 (0.0-0.8) K/mm3 Eosinophils # (Manual) 1.2 H (0.0-0.4) K/mm3 Basophils # (Manual) 0.1 (0.0-0.1) K/mm3 Metamyelocytes # 0.0 K/mm3 Myelocytes # 0.0 K/mm3 Promyelocytes # 0.0 K/mm3 Blast Cells # 0.0 K/mm3 WBC Morphology Not Reportable Hypersegmented Neuts Not Reportable Hyposegmented Neuts Not Reportable Hypogranular Neuts Not Reportable Smudge Cells Not Reportable Toxic Granulation Not Reportable Toxic Vacuolation Not Reportable Dohle Bodies Not Reportable Pelger-Huet Anomaly Not Reportable Prosper Rods Not Reportable Platelet Estimate Consistent w auto Clumped Platelets Not Reportable Plt Clumps, EDTA Not Reportable Large Platelets Not Reportable Giant Platelets Not Reportable Platelet Satelliting Not Reportable Plt Morphology Comment Not Reportable RBC Morphology Normal Dimorphic RBCs Not Reportable Polychromasia Not Reportable Hypochromasia Not Reportable Poikilocytosis Not Reportable Anisocytosis Not Reportable Microcytosis Not Reportable Macrocytosis Not Reportable Spherocytes Not Reportable Pappenheimer Bodies Not Reportable Sickle Cells Not Reportable Target Cells Not Reportable Tear Drop Cells Not Reportable Ovalocytes Not Reportable Helmet Cells Not Reportable [place] Bodies Not Reportable [place] Not Reportable [place] Cells Not Reportable Bite Cells Not Reportable Crenated Cell Not Reportable Elliptocytes Not Reportable Acanthocytes (Spur) Not Reportable Rouleaux Not Reportable Hemoglobin C Crystals Not Reportable Schistocytes Not Reportable Malaria parasites Not Reportable Dequan Bodies Not Reportable Hem Pathologist Commnt No Sodium 142 (137-145) mmol/L Potassium 4.2 (3.6-5.0) mmol/L Chloride 104.4 (98-107) mmol/L Carbon Dioxide 27 (22-30) mmol/L Anion Gap 15 mmol/L BUN 6 L (9-20) mg/dL Creatinine 0.7 L (0.8-1.3) mg/dL Estimated GFR > 60 ml/min BUN/Creatinine Ratio 9 % Glucose 97 (75-100) mg/dL Calcium 9.6 (8.4-10.2) mg/dL Total Bilirubin 0.70 (0.1-1.2) mg/dL AST 15 (5-40) units/L ALT 12 (7-56) units/L Alkaline Phosphatase 104 (35-129) units/L Total Protein 8.2 (6.3-8.2) g/dL Albumin 4.7 (3.9-5) g/dL Albumin/Globulin Ratio 1.3 % - Radiology Data Radiology results: report reviewed CHEST 2 VIEWS INDICATION / CLINICAL INFORMATION: sob, wheezing, cough. COMPARISON: 10/26/2020 FINDINGS: SUPPORT DEVICES: None. HEART / MEDIASTINUM: No significant abnormality. LUNGS / PLEURA: No significant pulmonary or pleural abnormality. No pneumothorax. ADDITIONAL FINDINGS: No significant additional findings. IMPRESSION: 1. No acute findings. - Medical Decision Making 65-year-old male with COPD exacerbation treated with 2 separate treatments of continue with nebs and IM Decadron. Initially hypoxic upon arrival however, after ED treatment patient is satting 100% on room air at rest and exertion. He reports feeling better he is no longer wheezing at discharge. Patient states he feels good and dyspnea has resolved. He prefers to go home and will be treated with steroids, and nebs will also be prescribed. Patient encouraged to return if symptoms worsen d/c at 1:51 am Critical Care Time: Yes Critical care time in (mins) excluding proc time.: 35 (continuous nebs) Critical care attestation.: If time is entered above; I have spent that time in minutes in the direct care of this critically ill patient, excluding procedure time. ED Disposition Clinical Impression: COPD with acute exacerbation Disposition: 01 HOME / SELF CARE / HOMELESS Is pt being admited?: No Does the pt Need Aspirin: No Condition: Stable Instructions: Chronic Obstructive Pulmonary Disease (ED) Additional Instructions: Patient discharged during downtime Prescriptions for albuterol nebs x30 doses, prednisone 40 mg x 5 days, nebulizer with accessories provided PMD follow-up encouraged Pulmonology follow-up encouraged and provided follow-up for Dr Tubbs managed services consultant on-call Referrals: NELL DAI MD [Primary Care Provider] - 3-5 Days Time of Disposition: 01:51
[2021-02-03] MEDS: ALBUTEROL 2.5 MG/3 ML NEBU IH ONE (21:29)
[2021-02-03] MEDS: dexAMETHasone 20 MG/5 ML VIAL IM ONE (21:29)
[2021-02-03] MEDS: IPRATROPIUM 0.02% NEBU 2.5 ML IH ONE (21:29)
[2021-02-03 21:36] LABS: Alanine Aminotransferase 12 units/L (7-56); Albumin 4.7 g/dL (3.9-5); Blood Urea Nitrogen 6 mg/dL (9-20); Calcium 9.6 mg/dL (8.4-10.2); Hemolysis Index 10
[2021-02-03 21:43] LABS: Hematocrit 44.5 % (35.5-45.6); Hemoglobin 14.2 gm/dl (11.8-15.2); Mean Corpuscular HGB Conc 32 % (32-34); Mean Corpuscular Volume 90 fl (84-94); Platelet Count 280 K/mm3 (140-440); Red Blood Count 4.97 M/mm3 (3.65-5.03); Red Cell Distribution Width 14.3 % (13.2-15.2)
[2021-02-03 21:54] LABS: BUN/Creatinine Ratio 9
[2021-02-03 22:45] LABS: Total Cells Counted 100
[2021-02-03 22:46] LABS: Platelet Estimate Consistent w Auto; RBC Morphology Normal
[2021-02-04] MEDS ORDERED: ALBUTEROL 2.5 MG/3 ML NEBU IH ONE (00:20)
[2021-02-04] MEDS: ALBUTEROL 2.5 MG/3 ML NEBU IH ONE (01:10)
== END 2021-02-04 02:05 | disposition home or self-care (01) ==
LOC: ED 19:05
DX: J44.1 Chronic obstructive pulmonary disease with (acute) exacerbation (principal); I10 Essential (primary) hypertension; E11.8 Type 2 diabetes mellitus with unspecified complications; I73.9 Peripheral vascular disease, unspecified; Z98.890 Other specified postprocedural states; Z87.891 Personal history of nicotine dependence
CPT/HCPCS: 36415; 71046; 80053; 85007; 85025; 94640; 96372; 99291; J1100; 99284